=== PATIENT | female | born 1995 | race Caucasian/White ===

== ENCOUNTER 2021-04-07 20:21 | Emergency (ER) | payer OTHER, SELFPAY ==
--- NOTE | ~2021-04-07 | XR_ITS ---
EXAMINATION: XR CHEST CLINICAL INFORMATION: Right cough x8 days. COMPARISON: None TECHNIQUE: 2 views of the chest were obtained. FINDINGS: No significant abnormality is noted involving the heart, lungs, mediastinum, bony thorax or soft tissues. XR/XR chest 2V IMPRESSION: Unremarkable chest examination.
[2021-04-07 20:29] VITALS: BP 122/69; PULSE 95; RESP 18; TEMP 37.2; O2SAT 97; BMI 27.4
[2021-04-07 21:02] LABS: COVID-19 Test Negative (Negative); IDNOW Serial# 9DD0AD1C
[2021-04-07 21:24] LABS: Basophils Absolute Auto 0.1 X10*3/uL (0.0-0.2); Basophils Percent Auto 0.9 % (0-2); Hemoglobin 10.5 g/dl (12.0-16.0); SCAN SMEAR FLAG 1
[2021-04-07 21:26] LABS: Eosinophils Absolute Auto 0.6 X10*3/uL (0.0-0.4); Eosinophils Percent Auto 6.4 % (0-4); Hematocrit 31.7 % (37-47); Imm Gran Abs Auto 0.02 X10*3/uL (0.00-0.03); Imm Gran Pct Auto 0.2 % (0.0-0.4); Lymphocytes Absolute Auto 2.6 X10*3/uL (1.2-4.9); Mean Corpuscular HGB Conc 33.1 g/dl (31.0-35.0); Mean Corpuscular Hemoglobin 27.1 pg (27.0-33.0); Mean Corpuscular Volume 81.9 fL (80-98); Monocytes Absolute Auto 0.8 X10*3/uL (0.1-1.2); Monocytes Percent Auto 7.6 % (2-11); Neutrophils Absolute Auto 5.8 X10*3/uL (2.0-8.3); Neutrophils Percent Auto 58.9 % (45-73); PLT ABN DIST 1; Platelet Count 165 X10*3/uL (160-400); Red Blood Count 3.87 X10*6/uL (4.20-5.50); Red Cell Distribution Width 14.4 % (11.0-16.0); White Blood Count 9.9 X10*3/uL (4.8-10.8)
[2021-04-07 21:27] LABS: MANUAL DIFF FLAG NO
[2021-04-07 21:47] LABS: Alanine Aminotransferase 7 U/L (0-31); Albumin Level 4.2 g/dL (3.5-5.0); Alkaline Phosphatase 41 U/L (39-117); Anion Gap 13 (12-20); Aspartate Amino Transferase 14 U/L (5-31); Bilirubin Total 0.3 mg/dL (0.0-1.0); Blood Urea Nitrogen 15 mg/dL (9-16); Calcium 9.3 mg/dL (8.4-10.2); Carbon Dioxide 23 mmol/L (22-29); Chloride 109 mmol/L (96-108); Estimated Glomerular Filt Rate > 60; Glucose Random 89 mg/dL (60-115); Potassium 3.9 mmol/L (3.3-5.1); Sodium 141 mmol/L (135-145); Total Protein 7.4 g/dL (6.5-8.0)
[2021-04-07 23:35] VITALS: BP 123/73; PULSE 88; RESP 19; TEMP 36.8; O2SAT 100
--- NOTE | 2021-04-07 23:38 | ED_ITS ---
HPI - URI/Sore Throat General Chief Complaint: Upper Respiratory Symptoms Stated Complaint: Fever/Headaache/Sore throat Source: patient Mode of arrival: ambulatory Limitations: no limitations History of Present Illness HPI Narrative: 25-year-old female with no significant past medical history presents with 8 days of upper respiratory symptoms. Cough, shortness breath, nasal congestion, and headache. She states that over the counter medications have not been effective. MD elicited complaint: fever, cough, sore throat and nasal congestion Onset (ago): day(s) (Eight) Consistency: constant Severity: moderate Description of mucous: clear and watery Able to tolerate fluids by mouth: Yes Exacerbating factors: deep breaths Relieving factors: nothing Context: sick contacts Associated symptoms: headache, rhinorrhea, nasal congestion, sore throat and cough Treatments prior to arrival: acetaminophen and ibuprofen Related Data Previous Rx's Medication Instructions Recorded albuterol sulfate 2 puff INHALATION Q4-6H PRN #6.7 g 04/07/21 azithromycin See Rx Instructions .ROUTE 04/07/21 .COMPLEX #6 tab benzonatate [Tessalon Perles] 100 mg PO TID PRN #20 cap 04/07/21 Allergies Allergy/AdvReac Type Severity Reaction Status Date / Time No Known Allergies Allergy Verified 04/07/21 20:33 Review of Systems Review of Systems: Constitutional: No Fever, no Chills, positive fatigue, positive Malaise ENT/Mouth: positive sore throat, positive runny nose Eyes: No Discharge Cardiovascular: No Chest Pain, positive SOB Respiratory: Positive Cough, No Sputum, positive Wheezing, No Smoke Exposure, No Dyspnea Gastrointestinal: No Nausea, No Vomiting, No Diarrhea Genitourinary: no irregular bleeding, No Dysuria, No Urinary Frequency, No Hematuria, No Urinary Incontinence, No Urgency, No Flank Pain, Musculoskeletal: positive Myalgia Skin: No rash Neuro: Positive Headache Yes all other systems are reviewed and are negative [facility] Past Medical History Attestation statement: The following information was validated with the patient. Source: old records reviewed Medical History delivery delivered No known health problems Social History Social History Advance Directives: No Advance Directives Information Provided: Yes Patient : No Physical Exam Vital Signs: Vital Signs: Last Vital Signs Temp 98.2 F 04/07/21 23:35 Pulse 78 04/08/21 00:02 Resp 19 04/07/21 23:35 BP 123/73 04/07/21 23:35 Pulse Ox 100 04/07/21 23:35 Body Mass Index 27.4 Appearance: Alert. Oriented X3. Mild distress. Eyes: Pupils equal, round and reactive to light. EOMI, sclera nonicteric, clear conjunctiva ENT: Pharynx normal. Moist mucous membranes Neck: Normal inspection. Neck supple. CVS: Normal heart rate and rhythm. Pulses normal. Respiratory: No respiratory distress. Lung sounds coarse throughout. Abdomen: Soft and nontender. Skin: Skin warm and dry. Normal skin color. Normal skin turgor. Extremities: No lower extremity edema. Neuro: No motor deficit. No sensory deficit. Course Course Course Narrative: 25-year-old female presents with 8 days of upper respiratory symptoms. Lung sounds are coarse, will order neb treatment and albuterol pump inhaler. Will give azithromycin and Tessalon Perles. Although x-rays negative for pneumonia, I feel that is necessary to treat as she has had prolonged symptoms, and lungs are coarse with past medical history of asthma. COVID test is negative. Lab values are unremarkable. Plan of care is to discharge home. Patient verbalized understanding of and agrees to plan. nurse's companion utilized for all correspondence. Will translate utilized for discharge instructions. MDM - URI/Sore Throat Differential Diagnosis Differential diagnosis: Likely upper respiratory infection, viral infection and bronchitis Medical Records Attestation: I reviewed the patient's medical records. Lab Data Attestation: I reviewed the patient's lab results. Result diagrams: 04/07/21 21:11 04/07/21 21:11 Labs: Lab Results 04/07/21 04/07/21 04/07/21 Range/Units 20:35 21:11 21:11 WBC 9.9 (4.8-10.8) X10*3/uL RBC 3.87 L (4.20-5.50) X10*6/uL Hgb 10.5 L (12.0-16.0) g/dl Hct 31.7 L (37-47) % MCV 81.9 (80-98) fL MCH 27.1 (27.0-33.0) pg MCHC 33.1 (31.0-35.0) g/dl RDW 14.4 (11.0-16.0) % Plt Count 165 (160-400) X10*3/uL MPV Not Reportable Immature Gran % (Auto) 0.2 (0.0-0.4) % Neut % (Auto) 58.9 (45-73) % Lymph % (Auto) 26.0 (20-40) % [place] % (Auto) 7.6 (2-11) % Eos % (Auto) 6.4 H (0-4) % Baso % (Auto) 0.9 (0-2) % Lymph # (Auto) 2.6 (1.2-4.9) X10*3/uL [place] # (Auto) 0.8 (0.1-1.2) X10*3/uL Eos # (Auto) 0.6 H (0.0-0.4) X10*3/uL Baso # (Auto) 0.1 (0.0-0.2) X10*3/uL Abs Immat Gran (auto) 0.02 (0.00-0.03) X10*3/uL Absolute Neuts (auto) 5.8 (2.0-8.3) X10*3/uL Absolute Nucleated RBC 0.000 (0.0-0.012) X10*3/uL Nucleated RBC % (auto) 0.0 (0.0-0.2) /100WBC Sodium 141 (135-145) mmol/L Potassium 3.9 (3.3-5.1) mmol/L Chloride 109 H (96-108) mmol/L Carbon Dioxide 23 (22-29) mmol/L Anion Gap 13 (12-20) BUN 15 (9-16) mg/dL Creatinine 0.84 (0.5-1.4) mg/dL Estim Creat Clear Calc 100.0 Estimated GFR > 60 Random Glucose 89 (60-115) mg/dL Calcium 9.3 (8.4-10.2) mg/dL Total Bilirubin 0.3 (0.0-1.0) mg/dL AST 14 (5-31) U/L ALT 7 (0-31) U/L Alkaline Phosphatase 41 (39-117) U/L Total Protein 7.4 (6.5-8.0) g/dL Albumin 4.2 (3.5-5.0) g/dL COVID-19 (RICARDO) Negative (Negative) COVID-19 Clin Com See Note Imaging Data Chest x-ray: Attestation: I personally reviewed and interpreted this imaging study as follows: Radiologist's impression: EXAMINATION: XR CHEST CLINICAL INFORMATION: Right cough x8 days. COMPARISON: None TECHNIQUE: 2 views of the chest were obtained. FINDINGS: No significant abnormality is noted involving the heart, lungs, mediastinum, bony thorax or soft tissues. XR/XR chest 2V IMPRESSION: Unremarkable chest examination. Discharge Plan Discharge Clinical Impression: Bronchitis Upper respiratory infection Qualifiers: URI type: unspecified URI Qualified Code(s): J06.9 - Acute upper respiratory infection, unspecified Patient Disposition: Home, Self-Care Instructions: Upper Respiratory Infection (ED), Acute Bronchitis (ED) Additional Instructions: You were evaluated for upper respiratory symptoms. Please take azithromycin as directed. Please use albuterol as needed for shortness of breath and cough. Please use Tessalon 1 tab every 8 hours for cough. Do not exceed this dosage. Follow-up with primary care physician in the next week as needed. Drink plenty of fluids. Thank you for choosing this emergency department for evaluation. Please follow-up with primary care physician as needed. Return to the emergency department for any new, concerning, or worsening symptoms. Prescriptions: New azithromycin 250 mg tablet See Rx Instructions .ROUTE .COMPLEX Qty: 6 RF: 0 albuterol sulfate 90 mcg/actuation HFA aerosol inhaler 2 puff inhalation Q4-6H PRN (Reason: shortness of breath or wheezing) Qty: 6.7 RF: 0 benzonatate [Tessalon Perles] 100 mg capsule 100 mg PO TID PRN (Reason: cough) Qty: 20 RF: 0 Interventions: ED Discharge Assessment Last Done: 04/08/21 00:24 Discharge Date/Time: 04/08/21 00:30
[2021-04-07] MEDS: Azithromycin 500 MG TABLET PO (23:54)
[2021-04-07] MEDS: Benzonatate 100 MG CAPSULE 200 MG PO (23:54)
[2021-04-08 00:02] VITALS: PULSE 78; O2SAT 99
[2021-04-08] MEDS: Albuterol Sulfate 90 MCG 8 GM INHALER 2 PUFF INHALE (00:03)
[2021-04-08] MEDS: Albuterol Sulfate (0.083%) 2.5 MG/3 ML VIAL.NEB 5 MG INHALE (00:04)
== END 2021-04-08 00:30 | disposition home or self-care (01) ==
PROVIDERS: Emergency Provider Emergency Medicine Emergency Medical Services
DX: J06.9 Acute upper respiratory infection, unspecified (principal); J40 Bronchitis, not specified as acute or chronic; Z20.822 Contact with and (suspected) exposure to COVID-19
CPT/HCPCS: 36415; 71046; 80053; 85025; 87635; 94640; 99284

== ENCOUNTER 2021-08-17 10:12 | Emergency (ER) | payer MEDICAID, SELFPAY ==
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
[2021-08-17 10:18] VITALS: BP 109/61; PULSE 77; RESP 17; TEMP 35.9; O2SAT 100; BMI 29.2
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
== END 2021-08-17 11:55 | disposition home or self-care (01) ==
PROVIDERS: Emergency Provider Emergency Medicine
DX: S16.1XXA Strain of muscle, fascia and tendon at neck level, initial encounter (principal); V43.52XA Car driver injured in collision with other type car in traffic accident, initial encounter; Y93.9 Activity, unspecified; Y92.410 Unspecified street and highway as the place of occurrence of the external cause; Y99.9 Unspecified external cause status
CPT/HCPCS: 72040; 99283

== ENCOUNTER 2022-01-21 23:31 | Emergency (ER) | payer MEDICAID, SELFPAY ==
[2022-01-22 00:09] VITALS: BP 128/83; PULSE 77; RESP 15; TEMP 36.7; O2SAT 98; BMI 29.2
[2022-01-22 01:07] LABS: Influenza A PCR NEGATIVE (Negative); Influenza B PCR NEGATIVE (Negative); Resp Syncy Virus RNA Qual PCR NEGATIVE (Negative); SARS COV2 PCR INHOUSE POSITIVE (Negative)
--- NOTE | 2022-01-22 01:43 | ED.URI ---
HPI - URI/Sore Throat General Chief Complaint: Upper Respiratory Symptoms Stated Complaint: Covid symptoms Time Seen by Provider: 01/21/22 23:35 Source: patient Mode of arrival: ambulatory History of Present Illness HPI Narrative: 26-year-old female without significant past medical history presents with who has COVID 19 positive and complaints of headache, cough, nasal congestion that started today. Related Data Previous Rx's Medication Instructions Recorded albuterol sulfate 90 mcg/actuation 2 puff INHALATION Q4-6H PRN #6.7 g 04/07/21 aerosol inhaler azithromycin 250 mg tablet See Rx Instructions .ROUTE 04/07/21 .COMPLEX #6 tab benzonatate 100 mg capsule 100 mg PO TID PRN #20 cap 04/07/21 (Luisito Yu) cyclobenzaprine 10 mg tablet 10 mg PO TID PRN #10 tab 08/17/21 ibuprofen 800 mg tablet 800 mg PO Q8H PRN #15 tab 08/17/21 Allergies Allergy/AdvReac Type Severity Reaction Status Date / Time No Known Allergies Allergy Verified 08/17/21 10:17 Review of Systems Review of Systems: Pertinent positives and negatives as stated in HPI 10 point review of systems is otherwise negative. PMFSH Past Medical History Source: nursing notes reviewed Medical History delivery delivered No known health problems Social History Social History Advance Directives: No Patient : No Physical Exam Vital Signs: Vital Signs: Last Vital Signs Temp 98.0 F 01/22/22 00:09 Pulse 77 01/22/22 00:09 Resp 15 01/22/22 00:09 BP 128/83 01/22/22 00:09 Pulse Ox 98 01/22/22 00:09 BMI result Body Mass Index 29.2 VITAL SIGNS: Reviewed. GENERAL: Well developed, well nourished, in no acute distress. HEAD: Normocephalic/atraumatic EYES: PERRLA, EOMI EARS: Ext canals without abnormality, TMs non-bulging and non-erythematous NOSE: Nares patent bilateral OROPHARYNX: no oral lesions noted, posterior pharynx clear and non-erythematous without noted tonsillar enlargement/erythema/exudates NECK: Supple, no adenopathy LUNGS: Normal breath sounds. No adventitious sounds or accessory muscle use. SpO2<98> CARDIOVASCULAR: Regular rate and rhythm without noted murmurs ABDOMEN: Soft, non-tender, non-distended with bowel sounds. SKIN: Inspection of the skin reveals no rashes NEUROLOGIC: Alert and oriented x 4. Strength and sensation to light touch were grossly intact x 4. Course Course Course Narrative: 26-year-old female with history and clinical presentation consistent with viral syndrome and on review of all investigations patient has COVID-19 positive. She was informed of all results and is otherwise hemodynamically stable. Patient is oxygenating well on room air, she is neither tachypneic/tachycardic/or febrile. MDM - URI/Sore Throat Lab Data Labs: Lab Results 01/22/22 Range/Units 00:19 Influenza Type A (PCR) NEGATIVE (Negative) Influenza Type B (PCR) NEGATIVE (Negative) RSV RNA Qual (PCR) NEGATIVE (Negative) SARS-CoV-2 RNA (RT-PCR) POSITIVE A (Negative) Discharge Plan Discharge Clinical Impression: Upper respiratory infection, Lab test positive for detection of COVID-19 virus Patient Disposition: Home, Self-Care Instructions: Upper Respiratory Infection (ED), COVID-19 (Coronavirus Disease 2019) (ED) Additional Instructions: Le stephenson diagnosticado jennifer infecci?n por COVID 19 y debe permanecer en cuarentena eleni los pr?ximos 14 d?as. Siga todas las pautas estatales y federales con respecto a la infecci?n por COVID-19. Recomiende Tylenol/ibuprofen de venta haylie seg?n sea necesario para temperaturas superiores a 100.4, mansi corporales, mansi de malka. Regrese a la foster de emergencias si los s?ntomas empeoran. Prescriptions: No Action azithromycin 250 mg tablet See Rx Instructions .ROUTE .COMPLEX Qty: 6 0RF Rx Instructions: take 500 mg today (day 1), then 250 mg for 4 days (days 2-5) albuterol sulfate 90 mcg/actuation HFA aerosol inhaler 2 puff inhalation Q4-6H PRN (Reason: shortness of breath or wheezing) Qty: 6.7 0RF benzonatate [Luisito Yu] 100 mg capsule 100 mg PO TID PRN (Reason: cough) Qty: 20 0RF ibuprofen 800 mg tablet 800 mg PO Q8H PRN (Reason: pain) Qty: 15 0RF cyclobenzaprine 10 mg tablet 10 mg PO TID PRN (Reason: muscle spasm) Qty: 10 0RF Print Language: Moldovan
== END 2022-01-22 02:58 | disposition home or self-care (01) ==
PROVIDERS: Emergency Provider Student in an Organized Health Care Education/Training Program
DX: U07.1 COVID-19 (principal); J06.9 Acute upper respiratory infection, unspecified
CPT/HCPCS: 0241U; 99283

== ENCOUNTER 2022-01-31 11:27 | Emergency (ER) | payer MEDICAID, SELFPAY | END 2022-01-31 13:30 | disposition left against medical advice (07) | PROVIDERS: Emergency Provider Emergency Medicine | DX: R51.9 Headache, unspecified (principal); R05.9 Cough, unspecified ==

== ENCOUNTER 2022-04-19 18:36 | Emergency (ER) | payer MEDICAID, SELFPAY | END 2022-04-19 19:58 | disposition left against medical advice (07) | PROVIDERS: Emergency Provider Emergency Medicine | DX: Z04.3 Encounter for examination and observation following other accident (principal) ==

== ENCOUNTER 2022-07-29 02:01 | Emergency (ER) | payer MEDICAID, SELFPAY ==
--- NOTE | 2022-07-29 | ECG_ITS ---
Test Reason : CHEST TIGHTNESS Blood Pressure : / mmHG Vent. Rate : 081 BPM Atrial Rate : 081 BPM P-R Int : 128 ms QRS Dur : 084 ms QT Int : 366 ms P-R-T Axes : 058 062 051 degrees QTc Int : 425 ms Normal sinus rhythm conduction delay Otherwise normal ECG No previous ECGs available Referred By: Generic ED Physician Electronically Signed By:JOSÉ MIGUEL HOLLY MD
[2022-07-29 02:28] VITALS: BP 117/68; PULSE 94; RESP 20; TEMP 37.4; O2SAT 96; BMI 29.9
[2022-07-29 02:54] LABS: Strep A Nucleic Acid Negative (Negative)
[2022-07-29 02:58] LABS: COVID-19 Test Negative (Negative); IDNOW Serial# 16C4AD1C; Influenza A Negative (Negative); Influenza B2 Negative (Negative)
[2022-07-29 04:00] VITALS: BP 114/64; PULSE 77; RESP 16; TEMP 36.9; O2SAT 96
--- NOTE | 2022-07-29 04:06 | ED.GENADULT ---
HPI - General Adult General Chief complaint: General Medical Stated complaint: Asthma Time Seen by Provider: 07/29/22 03:58 Source: patient Mode of arrival: ambulatory Limitations: no limitations History of Present Illness HPI narrative: 26-year-old female smoker with asthma presents emergency department complaining of cough all day. She states she ran out of her albuterol yesterday she denies any fevers or chills she denies any sick contacts she denies any falls or injuries. Related Data Previous Rx's Medication Instructions Recorded albuterol sulfate 90 mcg/actuation 2 puff inhalation Q4-6H PRN 04/07/21 aerosol inhaler shortness of breath or wheezing #6.7 grams azithromycin 250 mg tablet See Rx Instructions PO .COMPLEX #6 04/07/21 tabs benzonatate 100 mg capsule 100 mg PO TID PRN cough #20 caps 04/07/21 (Luisito Yu) cyclobenzaprine 10 mg tablet 10 mg PO TID PRN muscle spasm #10 08/17/21 tabs ibuprofen 800 mg tablet 800 mg PO Q8H PRN pain #15 tabs 08/17/21 albuterol sulfate 90 mcg/actuation 2 puff inhalation Q4-6H PRN 07/29/22 aerosol inhaler shortness of breath or wheezing #8.5 grams prednisone 20 mg tablet 60 mg PO DAILY Asthma 5 days #15 07/29/22 tabs Allergies Allergy/AdvReac Type Severity Reaction Status Date / Time No Known Allergies Allergy Verified 08/17/21 10:17 Review of Systems Review of Systems: Review of systems: General: Patient denies any fever chills recent illness or falls Musculoskeletal: Denies back pain or body aches or other injuries HEENT: denies headache, runny nose, ear pain Respiratory: shortness of breath, cough Cardiovascular: no chest pain or palpitations : denies dysuria, frequency Abdomen: no nausea vomiting denies abdominal pain Extremities: no swelling, no pain Skin: no diaphoresis Yes all other systems are reviewed and are negative [facility] Past Medical History Medical History delivery delivered No known health problems Social History Social History Advance Directives: No Advance Directives Information Provided: No Physical Exam ED Vital Signs: Vital Signs - 24 hr 07/29/22 02:28 07/29/22 04:00 07/29/22 04:22 Temperature 99.3 F 98.4 F Pulse Rate 94 77 73 Respiratory Rate 20 16 20 Blood Pressure 117/68 114/64 Pulse Oximetry 96 96 Oxygen Delivery Method Room Air Room Air BMI result Body Mass Index 29.9 General: Well-appearing well-nourished in no signs of distress HEENT: Normocephalic atraumatic? Neck: No signs of JVD, no masses no tenderness or lymphadenopathy Cardiovascular: Regular rate and rhythm Respiratory: wheezing bilaterally Abdomen: Soft nontender no masses Extremities: Normal pedal pulses no signs of edema Skin: Dry warm no rashes Back: No tenderness full ROM Medical Decision Making MDM Narrative Medical decision making narrative: Patient with wheezing bilaterally though patient has some albuterol I will give the patient prednisone and the patient need to be sent home on albuterol and prednisone. 0450 Patient is feeling much better XR okay wheezing resolved on exam. I will send home on prednisone with an inhaler. Lab Data Labs: Lab Results 07/29/22 07/29/22 07/29/22 Range/Units 02:29 02:29 02:33 COVID-19 (RICARDO) Negative (Negative) COVID-19 Clin Com See Note Influenza Type A (LIZET) Negative (Negative) Influenza Type B (LIZET) Negative (Negative) Influenza A & B Note See Note S. pyogenes GrpA LIZET Negative (Negative) Discharge Plan Discharge Clinical Impression: Asthma exacerbation Patient Disposition: Home, Self-Care Instructions: Asthma (ED), How to Use a Metered-Dose Inhaler and a Spacer (ED) Additional Instructions: Please call to follow up with your doctor. Please stop smoking. Prescriptions: New albuterol sulfate 90 mcg/actuation HFA aerosol inhaler 2 puff inhalation Q4-6H PRN (Reason: shortness of breath or wheezing) Qty: 8.5 1RF prednisone 20 mg tablet 60 mg PO DAILY 5 Days Qty: 15 0RF No Action azithromycin 250 mg tablet See Rx Instructions .ROUTE .COMPLEX Qty: 6 0RF Rx Instructions: take 500 mg today (day 1), then 250 mg for 4 days (days 2-5) albuterol sulfate 90 mcg/actuation HFA aerosol inhaler 2 puff inhalation Q4-6H PRN (Reason: shortness of breath or wheezing) Qty: 6.7 0RF benzonatate [Tessalon Perles] 100 mg capsule 100 mg PO TID PRN (Reason: cough) Qty: 20 0RF ibuprofen 800 mg tablet 800 mg PO Q8H PRN (Reason: pain) Qty: 15 0RF cyclobenzaprine 10 mg tablet 10 mg PO TID PRN (Reason: muscle spasm) Qty: 10 0RF
[2022-07-29] MEDS: predniSONE 20 MG TABLET 60 MG PO (04:17)
[2022-07-29] MEDS: Albuterol Sulfate (0.083%) 2.5 MG/3 ML VIAL.NEB INHALE (04:21)
[2022-07-29 04:22] VITALS: PULSE 73; RESP 20; O2SAT 100
== END 2022-07-29 05:26 | disposition home or self-care (01) ==
PROVIDERS: Emergency Provider Student in an Organized Health Care Education/Training Program
DX: J45.901 Unspecified asthma with (acute) exacerbation (principal); Z20.822 Contact with and (suspected) exposure to COVID-19
CPT/HCPCS: 71045; 87502; 87635; 87651; 93005; 94640; 99284

== ENCOUNTER 2022-08-29 19:04 | Emergency (ER) | payer MEDICAID, SELFPAY ==
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
[2022-08-29 19:32] VITALS: BP 120/76; PULSE 101; PULSE 102; RESP 20; TEMP 36.8; O2SAT 98; O2SAT 99; BMI 26.6
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
[2022-08-29] MEDS: Acetaminophen 325 MG TABLET 975 MG PO (20:13)
[2022-08-29] MEDS: oxyCODONE HCl ER 10 MG TAB.ER.12H PO (20:13)
== END 2022-08-29 22:40 | disposition home or self-care (01) ==
PROVIDERS: Emergency Provider Emergency Medicine
DX: S52.002A Unspecified fracture of upper end of left ulna, initial encounter for closed fracture (principal); Y00.XXXA Assault by blunt object, initial encounter; R51.9 Headache, unspecified; Y93.89 Activity, other specified; Y92.039 Unspecified place in apartment as the place of occurrence of the external cause; Y99.9 Unspecified external cause status
CPT/HCPCS: 29105; 70450; 72125; 73020; 73060; 73070; 73090; 73120; 99283; 99284

== ENCOUNTER 2022-09-03 11:31 | Emergency (ER) | payer MEDICAID, SELFPAY ==
--- NOTE | ~2022-09-03 | XR_ITS ---
EXAMINATION: XR ELBOW, LEFT CLINICAL INFORMATION: Evaluate fracture. COMPARISON: August 29, 2022 TECHNIQUE: 2 views of the left elbow. FINDINGS: There is again noted be a transverse intra-articular fracture of the proximal ulnar with stable alignment compared to previous study and no evidence of dislocation. There is a left elbow effusion present. XR/XR elbow LT min 3V IMPRESSION: No change in alignment of proximal intra-articular ulnar fracture with effusion..
[2022-09-03 11:33] VITALS: RESP 16; TEMP 36.2; O2SAT 99; BMI 26.6
[2022-09-03] MEDS: oxyCODONE HCl Immed Release 5 MG TABLET PO (13:30)
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
== END 2022-09-03 16:12 | disposition home or self-care (01) ==
PROVIDERS: Emergency Provider Emergency Medicine
DX: S52.002A Unspecified fracture of upper end of left ulna, initial encounter for closed fracture (principal); M79.602 Pain in left arm; Y04.2XXA Assault by strike against or bumped into by another person, initial encounter; Y93.9 Activity, unspecified; Y92.9 Unspecified place or not applicable; Y99.9 Unspecified external cause status; Z79.899 Other long term (current) drug therapy
CPT/HCPCS: 29105; 73080; 99283

== ENCOUNTER → 2022-09-04 10:38 | Outpatient (BNVA) | payer MEDICAID, SELFPAY | PROVIDERS: Visit Provider Physician Assistant | DX: S52.002A Unspecified fracture of upper end of left ulna, initial encounter for closed fracture (principal) | CPT/HCPCS: 29105; 99202 ==

== ENCOUNTER 2022-09-06 11:04 | Day surgery (SDC) | payer MEDICAID, SELFPAY ==
--- NOTE | 2022-09-05 11:02 | HO.ANESPROP2 ---
Documented by User: Tatiana Doyle NP 09/05/22 11:04 HPI - Anesthesia Eval Consult details Narrative: 26yo F for Left Ulna Fracture ORIF REPLACED BY [facility] Past Medical History Medical History (Updated 09/06/22 @ 12:35 by Ashlyn Ortega, RAYSHAWN) Asthma delivery delivered Social History Social History (Updated 09/04/22 @ 10:50 by Silver Scott) Patient Tobacco Use Status: Current everyday Tobacco user Tobacco use type: Cigarette Cigarettes Per Day: 3 Years Smoked: 2 years Current occupational status: unemployed Current occupation: right hand dominant Meds Allergies Allergy/AdvReac Type Severity Reaction Status Date / Time No Known Allergies Allergy Verified 09/06/22 12:35 Home Medications Medication Instructions Recorded Confirmed Last Taken Type prednisone 20 mg tablet 60 mg PO DAILY PRN asthma 09/06/22 Unknown History exacerbation Exam Exam Date and Time: September 05, 2022 110 Narrative Narrative: EKG 07/2022 Vent. Rate : 081 BPM ? ? Atrial Rate : 081 BPM ?? P-R Int : 128 ms? QRS Dur : 084 ms ? ? QT Int : 366 ms ? ? ? P-R-T Axes : 058 062 051 degrees ?? QTc Int : 425 ms ? Normal sinus rhythm RSR' or QR pattern in V1 suggests right ventricular conduction delay Otherwise normal ECG No previous ECGs available Assessment and Plan Assessment Anesthesia Assessment: Chart Reviewed Documented by User: Danial Fisher MD 09/06/22 18:39 REPLACED BY [facility] Past Medical History Medical History (Updated 09/06/22 @ 12:35 by Ashlyn Ortega RN) Asthma delivery delivered Functional capacity: independent ambulation Family History Family history of problems with anesthesia: No Surgical History History of Problems with Anesthesia: No Social History Social History (Updated 09/04/22 @ 10:50 by Silver Scott) Patient Tobacco Use Status: Current everyday Tobacco user Tobacco use type: Cigarette Cigarettes Per Day: 3 Years Smoked: 2 years Current occupational status: unemployed Current occupation: right hand dominant Meds Allergies Allergy/AdvReac Type Severity Reaction Status Date / Time No Known Allergies Allergy Verified 09/06/22 12:35 Home Medications Medication Instructions Recorded Confirmed Last Taken Type prednisone 20 mg tablet 60 mg PO DAILY PRN asthma 09/06/22 Unknown History exacerbation Exam Airway Mallampati Class: II TM Dist: >3cm Neck ROM: Full Loose/Missing/Broken Teeth: Yes (Front teeth multiple chipped , poor dentition overall ) Heart: S1,S2 Lungs: b/l breath sounds Assessment and Plan Assessment Anesthesia Assessment: Anesthesia Plan Discussed Final Anesthetic Review Family History of Problems with Anesthesia: No History of Problems with Anesthesia: No NPO: Yes ASA Class: II Final Preanesthetic Review: Meds/Allgs Chart Reviewed, Consent Obtained/Reviewed and Anes Risks/Benef Reviewed Patient Risk: Intermediate Procedure Risk: Intermediate Anesthetic Plan Anesthetic Plan: GA Disposition: Standard PACU
[2022-09-06] VITALS (9 sets, daily range): BP systolic 95–138; BP diastolic 60–90; PULSE 61–74; RESP 15–16; TEMP 36.3–36.6; O2SAT 97–100; BMI 29.7
--- NOTE | ~2022-09-06 | FL_ITS ---
EXAMINATION: XR FLUOROSCOPY WITH IMAGES CLINICAL INFORMATION: Fracture intraoperative fluoroscopy and C-arm views. COMPARISON: Prior study 09/03/2022 TECHNIQUE: Fluoroscopy Time: 0.4 minutes. Cumulative Dose: 0.929 mGy. Images: 2. FINDINGS: Intraoperative fluoroscopy provided, nails/wires placed across the fractures of the proximal ulna. Anatomic alignments restored. FL/FL guidance in OR IMPRESSION: Intraoperative fluoroscopy and C-arm views for ORIF proximal ulnar fractures.
[2022-09-06 12:00] LABS: UPreg QC Valid YES; Urine Pregnancy NEGATIVE (NEGATIVE)
--- NOTE | 2022-09-06 13:38 | MHC.SHP ---
Pre-Procedural Eval Section A Date of Service: 09/06/22 The patient is an INPATIENT: No Changes since office visit: No Cold of Flu in the past 2 weeks, No New Medical Problems, No Changes in Medication and No Patient answered all questions The History & Physical has been completed within 30 days and I have reviewed it.: Yes Section B Chief Complaint: Unspecified fracture of upper end of left ulna, Allergies: Allergies Allergy/AdvReac Type Severity Reaction Status Date / Time No Known Allergies Allergy Verified 09/06/22 12:35 Plan I have reviewed the history and physical and performed a pertinent physical examination on my patient. No changes have occurred unless specified.
--- NOTE | 2022-09-06 14:41 | PM.OP ---
Brief Operative Note Date of Service: 09/06/22 Pre-op diagnosis: Left olecranon fracture Post-op diagnosis: same Procedure: ORIF left Olecranon Implants: 1.6 k-wires x 2 with 14g cerclage Surgeon: Fabrizio Enriquez MD Anesthesia: GETA and local Was an Cashier Ticket Selling used for this Procedure?: Yes Cashier Ticket Selling: Jolanta Munoz Estimated blood loss (mL): 45 Tourniquet time (min): 45 IV fluids (mL): 1,000 Pathology: none sent Condition: stable Disposition: PACU
[2022-09-06] MEDS: HYDROmorphone HCl 0.5 MG/0.5 ML SYRINGE 0.25 MG IVPUSH (15:58)
[2022-09-06] MEDS: Acetaminophen 325 MG TABLET 650 MG PO (16:53)
[2022-09-06] MEDS: oxyCODONE HCl Immed Release 5 MG TABLET PO (16:54)
--- NOTE | 2022-09-06 17:03 | PC.NURSE ---
patient tearful complaining of left arm pain. taking po fluids. medicated for pain. review instructions discharge. following pain medication patient talking on cellphone more calm.
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
--- NOTE | 2022-09-12 11:16 | P.OP_ITS ---
Operative Note Operative Note Date of Service: 09/06/22 Narrative: Date of Service: 09/06/22 Pre-op diagnosis: Left olecranon fracture Post-op diagnosis: same Procedure: ORIF left Olecranon Implants: 1.6 k-wires x 2 with 14g cerclage Surgeon: Fabrizio Enriquez MD Anesthesia: GETA and local Was an Legal Activity Adjudicator used for this Procedure?: Yes Legal Activity Adjudicator: Jolanta Munoz Estimated blood loss (mL): 45 Tourniquet time (min): 45 IV fluids (mL): 1,000 Pathology: none sent Condition: stable Disposition: PACU Patient was brought to the operating room and placed supine on the surgical table. She was prepped and draped in standard sterile fashion and a time out was called to identify proper site, proper procedure and IV antibiotics per weight were administered. I began by exsanguinating the limb and insufflating the tourniquet to 250 mm HG. I then made a standard posterior incision over the ol ecranon. Full thickness flaps were devloped down to the ulna and the fracture was identified. 2 1.6 mm K-wires were then passed from ;proximal to distal, bicortically across the fracture. A 14 g cerclage wire was then placed through the ulna, distal to the fracture, and then brought proximal to the olecranon wires, crossed and then tightened. The fracture was reduced and I was satisfied with the hardware position and fracture reduction using fluor and direct visualization. I then buried the wire ends and the knot and irrigated copiously. The wound was then closdd with absorbable suture and skin glue. She was placed into a postrior, well-padded, splint, extubated and brought to the recovery room in stable condition. There were no known complications.
== END 2022-09-06 17:29 | disposition home or self-care (01) ==
LOC: HO.SSS 11:04
PROVIDERS: Nurse Practitioner; Visit Provider Orthopaedic Surgery
PROC: (CPT 24685; principal; 2022-09-06 12:30)
DX: S52.032A Displaced fracture of olecranon process with intraarticular extension of left ulna, initial encounter for closed fracture (principal); R20.2 Paresthesia of skin; W22.8XXA Striking against or struck by other objects, initial encounter; Y93.89 Activity, other specified; Y92.9 Unspecified place or not applicable; Y99.8 Other external cause status; J45.909 Unspecified asthma, uncomplicated; Z79.52 Long term (current) use of systemic steroids; Z79.899 Other long term (current) drug therapy; F17.210 Nicotine dependence, cigarettes, uncomplicated
CPT/HCPCS: 24685; 81025; J0690; J1100; J1170; J2250; J2405; J2795; J3010

== ENCOUNTER 2022-09-11 | Outpatient (REF) | payer MEDICAID, SELFPAY ==
--- NOTE | ~2022-09-11 | XR_ITS ---
EXAMINATION: XR ELBOW, LEFT CLINICAL INFORMATION: Fracture COMPARISON: Previous x-ray 09/03/2022 and intraoperative fluoroscopy the images 09/06/2022 TECHNIQUE: AP, lateral, and oblique views of the left elbow. FINDINGS: ORIF of proximal ulnar fracture. This appears unchanged from fluoroscopy images 09/06/2022. Anatomic alignment. No other fracture. Soft tissue swelling. Small joint effusion. XR/XR elbow LT min 3V IMPRESSION: ORIF of proximal ulnar fracture.
== END 2022-09-11 00:01 ==
LOC: HO.HOSX
PROVIDERS: Visit Provider Physician Assistant
DX: M25.522 Pain in left elbow (principal)
CPT/HCPCS: 73080

== ENCOUNTER 2022-09-18 | Outpatient (REF) | payer MEDICAID, SELFPAY ==
--- NOTE | ~2022-09-18 | XR_ITS ---
EXAMINATION: XR ELBOW, LEFT CLINICAL INFORMATION: Pain. Prior reduction proximal intra-articular ulnar fracture. Follow-up. COMPARISON: Left elbow radiographs 08/22/2022, 09/03/2022. TECHNIQUE: AP, lateral, and oblique views of the left elbow. FINDINGS: There is been prior reduction internal fixation of the intra-articular proximal ulnar fracture. The wires are intact. No destructive process or osteolysis. There are overlying skin joanne again seen. Fracture fragments are in near-anatomic alignment. The fracture line is still faintly visible. No visible elbow capsular effusion. No acute bony abnormality. XR/XR elbow LT min 3V IMPRESSION: Status post reduction internal fixation proximal ulnar fracture. Hardware intact. No destructive process.
== END 2022-09-18 00:01 ==
LOC: HO.HOSX
PROVIDERS: Visit Provider Physician Assistant
DX: M25.522 Pain in left elbow (principal)
CPT/HCPCS: 73080

== ENCOUNTER → 2022-10-17 14:42 | Outpatient (BNVA) | payer MEDICAID, SELFPAY | PROVIDERS: PCP Nurse Practitioner Primary Care; Visit Provider Physician Assistant | DX: Z13.89 Encounter for screening for other disorder (principal) ==

== ENCOUNTER → 2022-11-28 12:52 | Outpatient (BNVA) | payer MEDICAID, SELFPAY | PROVIDERS: PCP Nurse Practitioner Primary Care; Visit Provider Physician Assistant | DX: S52.002D Unspecified fracture of upper end of left ulna, subsequent encounter for closed fracture with routine healing (principal) | CPT/HCPCS: 99212 ==

== ENCOUNTER 2023-01-08 10:31 | Outpatient (REF) | payer MEDICAID, SELFPAY | END 2023-01-08 10:32 | disposition home or self-care (01) | LOC: HO.HOSX 10:31 | PROVIDERS: Visit Provider Orthopaedic Surgery | DX: Z13.89 Encounter for screening for other disorder (principal) ==

== ENCOUNTER 2023-01-19 | Outpatient (REF) | payer MEDICAID, SELFPAY ==
--- NOTE | ~2023-01-19 | XR_ITS ---
EXAMINATION: XR ELBOW, LEFT CLINICAL INFORMATION: Pain COMPARISON: 09/18/2022 TECHNIQUE: AP, lateral, and oblique views of the left elbow. FINDINGS: Alignment is normal at radiocapitellar and ulnohumeral joints. No arthritic deformity. No acute fracture, subluxation or joint effusion. There has been healing of the previously observed olecranon fracture. The K wires and [id number] tension band wire remain intact. No hardware loosening. XR/XR elbow LT 2V IMPRESSION: * There has been healing of the olecranon fracture. * No new abnormalities at the left elbow.
== END 2023-01-19 00:01 | disposition home or self-care (01) ==
LOC: HO.HOSX
PROVIDERS: Visit Provider Orthopaedic Surgery
DX: M25.522 Pain in left elbow (principal)
CPT/HCPCS: 73070

== ENCOUNTER → 2023-01-19 11:34 | Outpatient (BNVA) | payer MEDICAID, SELFPAY | PROVIDERS: PCP Nurse Practitioner Primary Care; Visit Provider Orthopaedic Surgery | DX: S52.002D Unspecified fracture of upper end of left ulna, subsequent encounter for closed fracture with routine healing (principal); Z96.9 Presence of functional implant, unspecified | CPT/HCPCS: 99212 ==

== ENCOUNTER 2023-01-23 11:20 | Day surgery (SDC) | payer MEDICAID, SELFPAY ==
[2023-01-23] VITALS (7 sets, daily range): BP systolic 113–127; BP diastolic 68–76; PULSE 58–80; RESP 12–16; TEMP 36.4–36.8; O2SAT 96–100; BMI 26.6
--- NOTE | ~2023-01-23 | FL_ITS ---
EXAMINATION: XR FLUOROSCOPY WITH IMAGES CLINICAL INFORMATION: Hardware removal from left elbow. COMPARISON: Radiographs of elbow from 01/19/2023 TECHNIQUE: Fluoroscopy Supervised By: Dr. Enriquez. Fluoroscopy Time: 0.1 minute. Cumulative Dose: 1229 mGy. DAP: 0.0074 Gycm2. Images: 1 image is saved. FL/FL guidance in OR FINDINGS AND IMPRESSION: Interval removal of K wires and [id number] tension band wire from the olecranon. Several punctate metallic densities project over soft tissues at the olecranon. Alignment of the elbow is normal (as seen on this single lateral view).
[2023-01-23 12:01] LABS: UPreg QC Valid YES; Urine Pregnancy NEGATIVE (NEGATIVE)
[2023-01-23] MEDS: Lactated Ringers 1,000 ML 50 ML IVCONT (12:13)
--- NOTE | 2023-01-23 13:14 | HO.ANESPROP2 ---
HPI - Anesthesia Eval Consult details Narrative: 27 F for hardware removal PMFSH Active Problems Active Problems: All Active Problems (Updated 01/19/23 @ 12:02 by Jett Jack) S/P ORIF (open reduction internal fixation) fracture (Acute) Retained orthopedic hardware (Acute) Past Medical History Medical History Asthma delivery delivered Family History Family history of problems with anesthesia: No Surgical History Surgical History Hx of elbow surgery History of Problems with Anesthesia: No Social History Social History Patient Tobacco Use Status: Never used Tobacco Tobacco use type: Cigarette Cigarettes Per Day: 3 Years Smoked: 2 years Are you DNR?: No Advance Directives: No Advance Directives Information Provided: Yes Recently lost weight without trying: No Nutrition Risks: No Nutritional Risk FDLMP: 2 weeks last menses Current occupational status: unemployed Current occupation: right hand dominant Meds Allergies Allergy/AdvReac Type Severity Reaction Status Date / Time No Known Allergies Allergy Verified 11/28/22 13:00 Active Medications: Current Medications Lactated Ringer's (Lr) 1,000 mls @ 50 mls/hr IVCONT .Q20H JACQUELINE Last Admin: 01/23/23 12:13 Dose: 50 mls/hr Home Medications Medication Instructions Recorded Confirmed Last Taken Type ibuprofen 800 mg tablet 800 mg PO Q6H 11/28/22 01/17/23 History Exam Exam Date and Time: January 23, 2023 1315 Height,Weight and Vital Signs: Height 5 ft 7 in Weight 169 lb 15.975 oz Last Vital Signs Temp 98.3 F 01/23/23 11:40 Pulse 80 01/23/23 11:40 Resp 16 01/23/23 11:40 BP 125/69 01/23/23 11:40 Pulse Ox 98 01/23/23 11:40 O2 Del Method Room Air 01/23/23 11:40 Pertinent Lab Results Pertinent Lab Results: Laboratory Tests 01/23/23 11:40 Urine Test NEGATIVE Airway Mallampati Class: I TM Dist: >3cm Neck ROM: Full Loose/Missing/Broken Teeth: Yes Assessment and Plan Assessment Anesthesia Assessment: Anesthesia Plan Discussed and Chart Reviewed Final Anesthetic Review Family History of Problems with Anesthesia: No History of Problems with Anesthesia: No NPO: Yes ASA Class: I Final Preanesthetic Review: No Changes in Pt Med Stat, Meds/Allgs Chart Reviewed, Consent Obtained/Reviewed and Anes Risks/Benef Reviewed Patient Risk: Low Procedure Risk: Low Anesthetic Plan Anesthetic Plan: GA Disposition: Standard PACU
--- NOTE | 2023-01-23 15:27 | PM.OP ---
Brief Operative Note Date of Service: 01/23/23 Pre-op diagnosis: left elbow retained hardware Post-op diagnosis: same Procedure: KINGSLEY left elbow Implants: none Surgeon: Fabrizio Enriquez MD Anesthesia: GLMA and local Was an Finish Production Manager used for this Procedure?: No Estimated blood loss (mL): 2 Tourniquet time (min): 15 IV fluids (mL): 500 Pathology: none sent Condition: stable Disposition: PACU
[2023-01-23] MEDS: oxyCODONE HCl Immed Release 5 MG TABLET PO (16:10)
[2023-01-23] MEDS: Acetaminophen 1,000 MG/100 ML PIGGYBACK 400 MG IV (16:19)
--- NOTE | 2023-01-24 14:52 | P.OP_ITS ---
Operative Note Operative Note Date of Service: 01/24/23 Narrative: Date of Service: 01/23/23 Pre-op diagnosis: left elbow retained hardware Post-op diagnosis: same Procedure: KINGSLEY left elbow Implants: none Surgeon: Fabrizio Enriquez MD Anesthesia: GLMA and local Was an Thermal Cutting Tracer Machine Operator used for this Procedure?: No Estimated blood loss (mL): 2 Tourniquet time (min): 15 IV fluids (mL): 500 Pathology: none sent Condition: stable Disposition: PACU Patient was brought to the operating room and placed supine on the surgical table. She was prepped and draped in standard sterile fashion and a time out was called to identify proper site, proper procedure and IV antibiotics per weight were administered. The limb was exsanguinated and the tourniquet insufflated to 300 mm Hg. I began by making a 3-4 cm incision over the proximal aspect of the prior incision. Full thickness flaps were developed and the cerclage wire and pin were easily identified and then cut and then removed. Fluoro was used to confirm hardware removal. Local anesthetic was used both prior and after incision closure. Approximately 10 ml of marcaine was used. Layered closure with 3.0 vicryl and joanne was used.
== END 2023-01-23 16:41 | disposition home or self-care (01) ==
PROVIDERS: Anesthesiology; Visit Provider Orthopaedic Surgery
PROC: (CPT 20670; principal; 2023-01-23 13:00)
DX: T84.84XA Pain due to internal orthopedic prosthetic devices, implants and grafts, initial encounter (principal); M25.522 Pain in left elbow; Y79.2 Prosthetic and other implants, materials and accessory orthopedic devices associated with adverse incidents; J45.909 Unspecified asthma, uncomplicated; F17.210 Nicotine dependence, cigarettes, uncomplicated
CPT/HCPCS: 20670; 81025; J0131; J0690; J1100; J1885; J2250; J2405; J2795; J3010

== ENCOUNTER → 2023-01-25 10:38 | Outpatient (BNVA) | payer MEDICAID, SELFPAY | PROVIDERS: Visit Provider Physician Assistant ==

== ENCOUNTER 2023-01-29 08:38 | Outpatient (REF) | payer MEDICAID, SELFPAY ==
--- NOTE | ~2023-01-29 | XR_ITS ---
EXAMINATION: XR ELBOW, LEFT CLINICAL INFORMATION: Fracture. Post hardware removal. COMPARISON: Previous x-rays most recent December 2022 and fluoroscopy January 2023 TECHNIQUE: AP, lateral, and oblique views of the left elbow. FINDINGS: Healed proximal ulnar fracture. Lucencies in the proximal ulna related to previous orthopedic hardware. No acute fracture or dislocation. Normal joint space. No joint effusion. Small soft tissue tissue radiopaque foreign bodies over the olecranon. Posterior skin joanne. XR/XR elbow LT min 3V IMPRESSION: Healed proximal ulnar fracture. Small radiopaque soft tissue foreign bodies over the olecranon.
== END 2023-01-29 08:39 | disposition home or self-care (01) ==
LOC: HO.HOSX 08:38
PROVIDERS: Visit Provider Physician Assistant
DX: S52.002D Unspecified fracture of upper end of left ulna, subsequent encounter for closed fracture with routine healing (principal)
CPT/HCPCS: 73080

== ENCOUNTER → 2023-02-15 09:20 | Outpatient (BNVA) | payer MEDICAID, SELFPAY | PROVIDERS: Visit Provider Physician Assistant | DX: M25.522 Pain in left elbow (principal); S52.002A Unspecified fracture of upper end of left ulna, initial encounter for closed fracture; X58.XXXA Exposure to other specified factors, initial encounter; Y93.9 Activity, unspecified; Y92.9 Unspecified place or not applicable; Y99.8 Other external cause status; Z45.89 Encounter for adjustment and management of other implanted devices; Z98.890 Other specified postprocedural states; Z96.622 Presence of left artificial elbow joint; Z87.81 Personal history of (healed) traumatic fracture | CPT/HCPCS: 99212 ==

== ENCOUNTER 2024-05-11 01:30 | Emergency (ER) | payer MEDICAID, SELFPAY ==
--- NOTE | ~2024-05-11 | XR_ITS ---
EXAMINATION: XR CHEST CLINICAL INFORMATION: Chest pain. COMPARISON: 07/29/2022 TECHNIQUE: 2 views of the chest were obtained. FINDINGS: No significant abnormality is noted involving the heart, lungs, mediastinum, bony thorax or soft tissues. XR/XR chest 2V IMPRESSION: Unremarkable examination.
--- NOTE | 2024-05-11 01:31 | ECG_ITS ---
Test Reason : cp Blood Pressure : / mmHG Vent. Rate : 070 BPM Atrial Rate : 070 BPM P-R Int : 130 ms QRS Dur : 096 ms QT Int : 378 ms P-R-T Axes : 077 074 058 degrees QTc Int : 408 ms Normal sinus rhythm Nonspecific T wave abnormality Abnormal ECG When compared with ECG of 29-JUL-2022 02:36, No significant change was found Referred By: Generic ED Physician Electronically Signed By:DAVEY JOHNSON MD
[2024-05-11 01:41] VITALS: BP 108/78; PULSE 88; RESP 16; TEMP 36.9; O2SAT 98; BMI 20.6
[2024-05-11 02:01] VITALS: BP 120/58; PULSE 67; PULSE 70; RESP 13; TEMP 36.8; O2SAT 98
[2024-05-11 02:02] LABS: Basophils Absolute Auto 0.1 X10*3/uL (0.0-0.2); Basophils Percent Auto 1.1 % (0-2); Eosinophils Absolute Auto 0.5 X10*3/uL (0.0-0.4); Eosinophils Percent Auto 4.5 % (0-4); Hematocrit 36.2 % (37.0-47.0); Hemoglobin 12.5 g/dl (12.0-16.0); Imm Gran Abs Auto 0.04 X10*3/uL (0.00-0.03); Imm Gran Pct Auto 0.4 % (0.0-0.4); Lymphocytes Absolute Auto 2.8 X10*3/uL (1.2-4.9); Lymphocytes Percent Auto 24.5 % (20-40); MANUAL DIFF FLAG SCAN; Mean Corpuscular HGB Conc 34.5 g/dl (31.0-35.0); Mean Corpuscular Volume 86.8 fL (80.0-98.0); Mean Platelet Volume 13.2 fL (9.4-12.3); Monocytes Absolute Auto 0.7 X10*3/uL (0.1-1.2); Monocytes Percent Auto 6.1 % (2-11); Neutrophils Absolute Auto 7.2 x10*3/uL (2.0-8.3); Neutrophils Percent Auto 63.4 % (45-73); PLT CLUMP 1; Red Blood Count 4.17 X10*6/uL (4.20-5.50); Red Cell Distribution Width 12.3 % (11.0-16.0); SCAN SMEAR FLAG 1
[2024-05-11 02:05] LABS: Platelet Count 145 X10*3/uL (160-400); White Blood Count 11.4 X10*3/uL (4.8-10.8)
[2024-05-11 02:20] LABS: SLIDE REVIEW VERIFIED
[2024-05-11 02:25] LABS: Alanine Aminotransferase 13 U/L (0-31); Albumin Level 4.4 g/dL (3.5-5.0); Alkaline Phosphatase 37 U/L (39-117); Anion Gap 12 (12-20); Aspartate Amino Transferase 16 U/L (5-31); Bilirubin Total 0.2 mg/dL (0.0-1.0); Blood Urea Nitrogen 16 mg/dL (9-16); Calcium 9.5 mg/dL (8.4-10.2); Carbon Dioxide 24 mmol/L (22-29); Chloride 107 mmol/L (96-108); Creatinine Clr Calc Pharmacy 84.7; Estimated Glomerular Filt Rate > 60; Glucose Random 89 mg/dL (60-115); Potassium 3.5 mmol/L (3.3-5.1); Sodium 139 mmol/L (135-145); Total Protein 7.4 g/dL (6.5-8.0)
[2024-05-11 02:31] LABS: Troponin-I High Sensitivity < 2.7 ng/L (<3.5-17.0)
--- OUTSIDE RECORDS SUMMARY | 2024-05-11 02:31 | XMS_ITS | Continuity of Care Document ---
Author Organization [facility] Address [address] [place] [address]- Care Team Providers Care Heat Treat Inspector Name Role Phone Marito SHRESTHA, Kings Morrissey Primary Care Physicia n Encounter [facility] [id number] Date(s): 06/19/23 - 07/19/23 [facility] [address]- Attending Physician: Marcie Dumas Admitting Physician: Marcie Dumas Referring Physician: AdmMarcie carranza Allergies, Adverse Reactions, Alerts No Known Allergies Immunizations Given and Recorded Vaccine Date Status Refusal Reason tetanus/diphtheria/pertussis, acel(Tdap) 04/08/18 Given tetanus/diphtheria/pertussis, acel(Tdap) 12/12/16 Given tetanus/diphtheria/pertussis, acel(Tdap) 09/15/15 Given tetanus/diphtheria/pertussis, acel(Tdap) 1 04/09/14 Given influenza virus vaccine, inactivated 08/12/15 Give n 1Result Comment: VIS given 02/27/2014 Medications Handheld Electric Breast Pump See Instructions, # 1 units, Maintenance, See instructions, 06/20/18 4:33:56 EDT, Compound Start Date: 06/20/18 Status: Ordered Problem List Condition Confirmation Course Effective Dates Status H ealth Status Informant Bartholin cyst Confirmed Active history of Diabetes, gestational Confirmed Active History of pre-eclampsia Confirmed Active British speaking patient Confirmed Active Thrombocytopenia Confirmed Active Uterine scar from previous surgery affecting Confirmed Active Maternal varicella, non-immune Confirmed Active Social History Social History Type Response Smoking Status Never smoker entered on: 06/21/14 Sex Patient Care team information Care Team Personnel Name: Natalie Kolb RN Position: [facility] OB RN Member Role: Primary Care Nurse Name: Kings Devi MD Position: [facility] General Pediatrics MD Member Role: PCP Address: Address: [facility] M.D. Pediatric[facility] [place], [place] [address] Name: Myriam Amos NP Position: [facility] Associate Professional Member Role: Primary Care Nurse Care Team Related Persons Name: GABI WAHL Address: home [address] [place] [address] Name: AMOS HUMPHREY Address: [address] Address: home [address] [address] [place] Name: GHASSAN FRIEDMAN Address: home [address] [place] [address]
--- NOTE | 2024-05-11 02:46 | ED_ITS ---
HPI - Chest Pain General Chief Complaint: Chest Pain Stated Complaint: chest pain Time Seen by Provider: 05/11/24 01:58 Source: patient Mode of arrival: ambulatory Limitations: no limitations History of Present Illness ED Provider: TRESA SMYTH narrative: 28 yo female no OCPs no recent URI no travel or procedures no trauma reports L chest and breast pain since yesterday worse with movements and touching. No rash or lesion to the breast this has never happened before. No hx of CAD MD complaint: chest pain Onset (ago): day(s) (yesterday) Timing of current episode: constant Prior episodes: No Onset: during rest Pain location: left chest Pain radiation: none Severity: moderate Quality: aching Relieving factors: nothing Exacerbating factors: palpation and movement Associated symptoms: dyspnea and other (breast pain) Related Data Home Medications ?Medication ?Instructions ?Recorded ?Confirmed ibuprofen 800 mg tablet 800 mg PO Q6H 11/28/22 Previous Rx's ?Medication ?Instructions ?Recorded albuterol sulfate 90 mcg/actuation 2 puff inhalation Q4-6H PRN 07/29/22 aerosol inhaler shortness of breath or wheezing #8.5 grams oxycodone 5 mg tablet 5 mg PO Q4H PRN pain 7 days #42 01/23/23 tabs cyclobenzaprine 10 mg tablet 10 mg PO TID PRN muscle spasm #20 05/11/24 tabs Allergies Allergy/AdvReac Type Severity Reaction Status Date / Time No Known Allergies Allergy Verified 05/11/24 01:44 Review of Systems 2 Review of Systems: Constitutional : No Weight loss, No Fever, No Chills ENT/Mouth : No sore throat, No Rhinorrhea Eyes: No Eye Pain, No Swelling Cardiovascular : pos Chest Pain, pos SOB, no Dyspnea on Exertion, No Orthopnea, No Edema, No Palpitations Respiratory : No Cough, No Sputum Gastrointestinal : no Nausea, No Vomiting, No Diarrhea, No abdominal Pain, No Hematochezia, No Melena Genitourinary : No Dysuria, No Urinary Frequency Musculoskeletal : No joint pain, No Myalgias, No Joint Swelling Skin : No Skin Lesions, No rash Neuro : No Weakness, No Numbness, No Dizziness, No Headache All other systems reviewed and are negative PMFSH Past Medical History Attestation statement: The following information was validated with the patient. Source: old records reviewed Medical History Asthma delivery delivered Surgical History Hx of elbow surgery Social History Social History Patient Tobacco Use Status: Never used Tobacco Tobacco use type: Cigarette Cigarettes Per Day: 3 Years Smoked: 2 years Smoked in Last 30 Days: Yes Advance Directives: No Advance Directives Information Provided: No Do you have a plan to hurt others: No Plan Patient : No Current occupational status: unemployed Current occupation: right hand dominant Physical Exam 2 Vital Signs: Vital Signs: Last Vital Signs Temp 98.3 F 05/11/24 02:01 Pulse 67 05/11/24 02:01 Resp 13 05/11/24 02:01 BP 120/58 L 05/11/24 02:01 Pulse Ox 98 05/11/24 02:01 O2 Del Method Room Air 05/11/24 02:01 BMI result Body Mass Index 20.6 Appearance: Alert. Oriented X3. No acute distress. Eyes: Pupils equal, round and reactive to light. ENT: Pharynx normal. Neck: Normal inspection. Neck supple. CVS: Normal heart rate and rhythm. Pulses normal. Chest: RN in room - Rosanne no obvious infection or mass of L breat but reproduceable pain and chest wall pain Respiratory: No respiratory distress. Breath sounds normal. Abdomen: Soft and nontender. Skin: Skin warm and dry. Normal skin color. Normal skin turgor. Extremities: No lower extremity edema. No calf ttp Neuro: Oriented X 3. No motor deficit. No sensory deficit. Medical Decision Making Medical Decision Making [facility] Narrative: 28 yo female no sig PMH not on OCPs here with L breast pain, chest pain - no travel no procedures, PERC negative, normal distal pulses, no infectious symptoms no mass or infection seen on breast will obtain labs, CXR, EKG, trop x 1, discussed mammogram or US with PCP. Differential Diagnosis Differential Diagnoses: The differential diagnosis associated with the presentation includes atypical chest pain, breat pain - no infection noted PERC negative distal pulse intact doubt dissection Admission/Observation Consideration of admission/observation: Escalation of care including admission/observation considered work up negative stable for DC Lab Data [facility] Lab Attestation statement: I reviewed the patient's lab results. 05/11/24 01:55 05/11/24 01:55 Labs: Lab Results 05/11/24 Range/Units 01:55 WBC 11.4 H (4.8-10.8) X10*3/uL RBC 4.17 L (4.20-5.50) X10*6/uL Hgb 12.5 (12.0-16.0) g/dl Hct 36.2 L (37.0-47.0) % MCV 86.8 (80.0-98.0) fL MCH 30.0 (27.0-33.0) pg MCHC 34.5 (31.0-35.0) g/dl RDW 12.3 (11.0-16.0) % Plt Count 145 L (160-400) X10*3/uL MPV 13.2 H (9.4-12.3) fL Immature Gran % (Auto) 0.4 (0.0-0.4) % Neut % (Auto) 63.4 (45-73) % Lymph % (Auto) 24.5 (20-40) % Clare % (Auto) 6.1 (2-11) % Eos % (Auto) 4.5 H (0-4) % Baso % (Auto) 1.1 (0-2) % Lymph # (Auto) 2.8 (1.2-4.9) X10*3/uL Clare # (Auto) 0.7 (0.1-1.2) X10*3/uL Eos # (Auto) 0.5 H (0.0-0.4) X10*3/uL Baso # (Auto) 0.1 (0.0-0.2) X10*3/uL Abs Immat Gran (auto) 0.04 H (0.00-0.03) X10*3/uL Absolute Neuts (auto) 7.2 (2.0-8.3) x10*3/uL Absolute Nucleated RBC 0.000 (0.0-0.012) X10*3/uL Nucleated RBC % (auto) 0.0 (0.0-0.2) /100WBC Smear Tech's Comments VERIFIED Sodium 139 (135-145) mmol/L Potassium 3.5 (3.3-5.1) mmol/L Chloride 107 (96-108) mmol/L Carbon Dioxide 24 (22-29) mmol/L Anion Gap 12 (12-20) BUN 16 (9-16) mg/dL Creatinine 0.85 (0.5-1.4) mg/dL Estim Creat Clear Calc 84.7 Estimated GFR > 60 Random Glucose 89 (60-115) mg/dL Calcium 9.5 (8.4-10.2) mg/dL Total Bilirubin 0.2 (0.0-1.0) mg/dL AST 16 (5-31) U/L ALT 13 (0-31) U/L Alkaline Phosphatase 37 L (39-117) U/L Troponin I High Sens < 2.7 (<3.5-17.0) ng/L Total Protein 7.4 (6.5-8.0) g/dL Albumin 4.4 (3.5-5.0) g/dL Independent Interpretation I performed an independent interpretation of an: EKG and Plain X-Ray (normal ) Interpretation: Rate: 70 Rhythm: NSR [place]: normal Normal P waves. Normal LIZETTE. Normal QRS complex. ST T wave : inverted t waves V1 qTC: 408 prior studies: no acute ischemia The study has been interpreted contemporaneously by me. . Radiology Impression Discussion of test interpretation with radiology: I have reviewed the radiologist's reading. External Record Review External record reviewed: Inpatient record Prescription Management I considered prescription management with: Other Discharge Plan Discharge Clinical Impression: Atypical chest pain Patient Disposition: Home, Self-Care Instructions: Chest Pain (ED) Additional Instructions: EKG reassuring, heart test negative return for worsening symptoms or concerns given breast complaint please call your doctor sunday for mammogram or ultrasound Prescriptions: New cyclobenzaprine 10 mg tablet 10 mg PO TID PRN (Reason: muscle spasm) Qty: 20 0RF No Action albuterol sulfate 90 mcg/actuation HFA aerosol inhaler 2 puff inhalation Q4-6H PRN (Reason: shortness of breath or wheezing) Qty: 8.5 1RF oxycodone 5 mg tablet 5 mg PO Q4H PRN (Reason: pain) 7 Days Qty: 42 0RF Rx Instructions: Partial Fill upon patient request. ibuprofen 800 mg tablet 800 mg PO Q6H Print Language: Togolese
[2024-05-11 03:16] VITALS: BP 115/71; PULSE 72; RESP 16; TEMP 36.8; O2SAT 99
== END 2024-05-11 03:17 | disposition home or self-care (01) ==
PROVIDERS: Emergency Provider Emergency Medicine
DX: R07.89 Other chest pain (principal); Z79.899 Other long term (current) drug therapy
CPT/HCPCS: 71046; 80053; 84484; 85025; 93005; 99284; 99285

== ENCOUNTER → 2024-05-11 01:31 | Outpatient (BNV) | payer MEDICAID, SELFPAY | PROVIDERS: Emergency Provider Emergency Medicine; Visit Provider Internal Medicine Cardiovascular Disease | DX: R94.31 Abnormal electrocardiogram [ECG] [EKG] (principal) | CPT/HCPCS: 93010 ==

== ENCOUNTER 2024-08-13 18:49 | Emergency (ER) | payer MEDICAID, SELFPAY ==
--- NOTE | ~2024-08-13 | US_ITS ---
EXAMINATION: US PELVIS CLINICAL INFORMATION: Right lower quadrant pain COMPARISON: CT abdomen and pelvis earlier today. TECHNIQUE: Ultrasound of the pelvis is performed using both transabdominal and transvaginal transducers along with Doppler. Transvaginal imaging is performed due to inadequate visualization transabdominally. FINDINGS: Uterus: The uterus is anteverted and measures 7.8 x 3.7 x 5.0 cm. The double wall endometrial thickness is 6 mm. The uterus is smooth in contour and has normal myometrial echogenicity. No visible fibroid. Adnexa: Both ovaries are visualized. There is normal color flow to the adnexa. There is no ovarian torsion. There is no pelvic ascites or fluid collection. Right ovary measures 3.8 x 2.5 x 3.6 cm for a volume of 17.9 mL which includes benign cysts, the largest measuring 2.4 cm. Left ovary measures 4.0 x 2.4 x 3.0 cm for a volume of 15.1 mL which includes a 2.0 cm benign hemorrhagic cyst and other smaller follicular cysts. US/US pelvic and transvaginal IMPRESSION: Unremarkable pelvic ultrasound. Electronically signed by: Dustin Rocha MD 08/13/2024 11:03 PM EDT
--- NOTE | ~2024-08-13 | US_ITS ---
EXAMINATION: US APPENDIX CLINICAL INFORMATION: Reason for Exam-abd pain COMPARISON: None. TECHNIQUE: Imaging of the right lower quadrant was performed with a high-frequency linear transducer using graded compression. FINDINGS: Appendix: Non-visualized appendix. Free Fluid: No. Increased Echogenicity Of Periappendiceal Fat: No. Mesenteric Lymph Nodes: No. Abscess: No. Right Kidney: Normal without hydronephrosis. Bladder: Not imaged Additional Abnormalities: None. US/US appendix IMPRESSION: Non-visualized appendix with no ancillary findings to suggest appendicitis. Electronically signed by: Dustin Rocha MD 08/13/2024 10:19 PM EDT
--- NOTE | ~2024-08-13 | XR_ITS ---
EXAMINATION: XR CHEST CLINICAL INFORMATION: Shortness of breath COMPARISON: Chest x-rays on 05/11/2024 TECHNIQUE: 2 views of the chest were obtained. FINDINGS: The cardiac silhouette is normal. There is mild diffuse bronchial wall thickening. Hazy opacity in the right midlung. There are no pleural effusions or pneumothoraces. The bones and soft tissues are unremarkable for the patient's age. XR/XR chest 2V IMPRESSION: 1. Bronchial wall thickening may be infectious and/or inflammatory in etiology. 2. Hazy opacity in the right midlung may be infectious in etiology. Electronically signed by: Tiffany Chapman MD 08/13/2024 09:20 PM EDT
--- NOTE | ~2024-08-13 | US_ITS ---
EXAMINATION: US PELVIS CLINICAL INFORMATION: Right lower quadrant pain COMPARISON: CT abdomen and pelvis earlier today. TECHNIQUE: Ultrasound of the pelvis is performed using both transabdominal and transvaginal transducers along with Doppler. Transvaginal imaging is performed due to inadequate visualization transabdominally. FINDINGS: Uterus: The uterus is anteverted and measures 7.8 x 3.7 x 5.0 cm. The double wall endometrial thickness is 6 mm. The uterus is smooth in contour and has normal myometrial echogenicity. No visible fibroid. Adnexa: Both ovaries are visualized. There is normal color flow to the adnexa. There is no ovarian torsion. There is no pelvic ascites or fluid collection. Right ovary measures 3.8 x 2.5 x 3.6 cm for a volume of 17.9 mL which includes benign cysts, the largest measuring 2.4 cm. Left ovary measures 4.0 x 2.4 x 3.0 cm for a volume of 15.1 mL which includes a 2.0 cm benign hemorrhagic cyst and other smaller follicular cysts. US/US pelvic ovarian doppler IMPRESSION: Unremarkable pelvic ultrasound. Electronically signed by: Dustin Rocha MD 08/13/2024 11:03 PM EDT
--- NOTE | ~2024-08-13 | CT_ITS ---
EXAMINATION: CT ABDOMEN AND PELVIS WITH CONTRAST CLINICAL INFORMATION: Right lower quadrant pain, rule out appendicitis COMPARISON: None available. TECHNIQUE: Multidetector volumetric images were obtained from the superior aspect of the liver through the pubic symphysis following administration 85 mL of Omnipaque 350 intravenous contrast. Sagittal and coronal reformatted images were obtained on the technologist's workstation. Oral contrast: No This CT examination was performed using dose optimization techniques as appropriate, variously including the following: *Automated exposure control *Adjustment of mA and/or kV according to patient size (this includes techniques or standardized protocols for targeted exams where dose is matched to indication/reason for exam; i.e. extremities or head) *Use of iterative reconstruction technique DLP: 330 mGy-cm FINDINGS: LUNG BASES: The visualized lung bases are unremarkable. LIVER, GALLBLADDER, AND BILIARY TREE: The liver is normal in size, shape, and attenuation. No focal hepatic lesion or biliary ductal dilatation is present. The gallbladder is unremarkable with no evidence of radiopaque gallstones, gallbladder wall thickening, or obvious pericholecystic inflammatory changes. PANCREAS: Unremarkable. SPLEEN: Unremarkable. ADRENAL GLANDS: Unremarkable. KIDNEYS AND URETERS: Bilateral punctate hypodensities which are to small to characterize. The kidneys are normal in size, shape, and attenuation. No hydronephrosis, hydroureter, or calculi seen. No perinephric stranding. BLADDER: Unremarkable. GASTROINTESTINAL TRACT: The small and large bowel are unremarkable. The appendix is unremarkable. ABDOMINAL WALL: No significant hernia is appreciated. LYMPH NODES: Normal. VASCULAR: Unremarkable. PELVIC VISCERA: Unremarkable. OSSEOUS STRUCTURES: Unremarkable. CT/CT abdomen pelvis w IV con IMPRESSION: No acute abnormality. Normal appendix. Fleischner guidelines were followed. Electronically signed by: Tiffany Chapman MD 08/13/2024 09:22 PM EDT
[2024-08-13 19:39] VITALS: BP 123/73; PULSE 98; RESP 28; TEMP 38.7; O2SAT 99; BMI 19.4
--- NOTE | 2024-08-13 19:42 | ECG_ITS ---
Test Reason : CP Blood Pressure : / mmHG Vent. Rate : 096 BPM Atrial Rate : 096 BPM P-R Int : 116 ms QRS Dur : 092 ms QT Int : 314 ms P-R-T Axes : 078 077 030 degrees QTc Int : 396 ms Normal sinus rhythm Possible Left atrial enlargement Nonspecific T wave abnormality Abnormal ECG When compared with ECG of 11-MAY-2024 01:42, No significant change was found Referred By: Love Matias Electronically Signed By:Torin Parekh
[2024-08-13 20:03] VITALS: BP 125/79; PULSE 91; RESP 16; TEMP 37.9; O2SAT 99
[2024-08-13] MEDS: Albuterol Sulfate 7.5 MG, Albuterol Sulfate (0.083%) 2.5 MG 10 MG INHALE (20:04)
[2024-08-13 20:05] VITALS: PULSE 98; RESP 20; O2SAT 97
[2024-08-13 20:16] LABS: MANUAL DIFF FLAG NO
[2024-08-13 20:19] LABS: VBG HCO3 28 mmol/L (22-26); VBG pCO2 40 mmHg; VBG pH 7.45 (7.32-7.43); VBG pO2 46 mmHg
[2024-08-13 20:20] LABS: Basophils Absolute Auto 0.1 X10*3/uL (0.0-0.2); Basophils Percent Auto 0.7 % (0-2); Eosinophils Percent Auto 0.3 % (0-4); Hematocrit 33.3 % (37.0-47.0); Hemoglobin 11.5 g/dl (12.0-16.0); Imm Gran Abs Auto 0.01 X10*3/uL (0.00-0.03); Imm Gran Pct Auto 0.1 % (0.0-0.4); Lymphocytes Absolute Auto 1.3 X10*3/uL (1.2-4.9); Lymphocytes Percent Auto 19.9 % (20-40); Mean Corpuscular HGB Conc 34.5 g/dl (31.0-35.0); Mean Corpuscular Hemoglobin 29.5 pg (27.0-33.0); Mean Corpuscular Volume 85.4 fL (80.0-98.0); Monocytes Absolute Auto 0.8 X10*3/uL (0.1-1.2); Monocytes Percent Auto 12.1 % (2-11); Neutrophils Absolute Auto 4.5 x10*3/uL (2.0-8.3); Neutrophils Percent Auto 66.9 % (45-73); Red Cell Distribution Width 12.2 % (11.0-16.0); White Blood Count 6.7 X10*3/uL (4.8-10.8)
[2024-08-13 20:22] LABS: Platelet Count 94 X10*3/uL (160-400)
[2024-08-13 20:23] LABS: Venous Blood Gas Refer to POC result
--- NOTE | 2024-08-13 20:25 | ED.GENADULT ---
HPI - General Adult General Chief complaint: Abdominal Pain Stated complaint: asthma Time Seen by Provider: 08/13/24 20:01 Source: patient Limitations: language barrier (In person interpreter for the deaf used) History of Present Illness ED Provider: David SMYTH narrative: 28-year-old female with past medical history of asthma presenting for abdominal pain, nausea, vomiting and shortness of breath. Patient states that she has been experiencing proximally 3 days of nausea, vomiting and right lower quadrant abdominal pain. Patient states that she has also been febrile and today she began experiencing shortness of breath and chest tightness. She states that her primary care physician wanted her to come to the emergency department to rule out appendicitis. Patient states that her last menstrual cycle ended approximately 12 days ago. She denies vaginal discharge/bleeding, diarrhea. Related Data Home Medications ?Medication ?Instructions ?Recorded ?Confirmed ibuprofen 800 mg tablet 800 mg PO Q6H 11/28/22 Previous Rx's ?Medication ?Instructions ?Recorded albuterol sulfate 90 mcg/actuation 2 puff inhalation Q4-6H PRN 07/29/22 aerosol inhaler shortness of breath or wheezing #8.5 grams oxycodone 5 mg tablet 5 mg PO Q4H PRN pain 7 days #42 01/23/23 tabs cyclobenzaprine 10 mg tablet 10 mg PO TID PRN muscle spasm #20 05/11/24 tabs cefuroxime axetil 500 mg tablet 500 mg PO Q12H 5 days #10 tabs 08/14/24 doxycycline hyclate 100 mg capsule 100 mg PO BID 5 days #10 caps 08/14/24 ondansetron 4 mg disintegrating 4 mg PO Q8H PRN nausea and 08/14/24 tablet vomiting 5 days #14 tabs prednisone 50 mg tablet 50 mg PO BID 5 days #10 tabs 08/14/24 Allergies Allergy/AdvReac Type Severity Reaction Status Date / Time No Known Allergies Allergy Verified 08/13/24 19:44 Review of Systems Review of Systems: Patient endorses shortness of breath, chest tightness, nausea, vomiting, abdominal pain Yes all other systems are reviewed and are negative [facility] Past Medical History Attestation statement: The following information was validated with the patient. [facility] Narrative: Asthma Medical History Asthma delivery delivered Surgical History Hx of elbow surgery Social History Social History Patient Tobacco Use Status: Never used Tobacco Tobacco use type: Cigarette Cigarettes Per Day: 3 Years Smoked: 2 years Smoked in Last 30 Days: No Use of substances other than those prescribed or required for medical reasons: No Advance Directives: No Advance Directives Information Provided: No Do you have a plan to hurt others: No Plan Current occupational status: unemployed Current occupation: right hand dominant Physical Exam ED Vital Signs: Vital Signs - 24 hr 08/13/24 19:39 08/13/24 20:03 08/13/24 20:05 Temperature 101.7 F H 100.3 F Pulse Rate 98 91 98 Respiratory Rate 28 H 16 20 Blood Pressure 123/73 125/79 Pulse Oximetry 99 99 Oxygen Delivery Method Room Air Room Air 08/13/24 21:40 08/13/24 21:50 08/14/24 00:05 Temperature 98.4 F 98.3 F Pulse Rate 102 H 110 H 85 Respiratory Rate 20 12 16 Blood Pressure 116/54 L 117/64 Pulse Oximetry 98 99 Oxygen Delivery Method Room Air Room Air 08/14/24 01:02 Temperature 98.3 F Pulse Rate 85 Respiratory Rate 16 Blood Pressure 117/64 Pulse Oximetry 99 Oxygen Delivery Method Room Air BMI result Body Mass Index 19.4 Well-appearing female Bilateral wheezing auscultated with good aeration Normal S1-S2 tachycardic Abdomen is soft, nondistended with right lower quadrant tenderness to palpation without guarding or rebound tenderness No lower extremity edema appreciated Course Reevaluation(s) Reevaluation #1: Patient is tachypneic and has a fever however I do not think that she is septic as she has asthma which likely explains her tachypnea and may have an underlying infection that is contributing to her fever however she is well-appearing Time: 20:28 Medications Administered Discontinued Medications Generic Name Dose Route Start Last Admin Trade Name Freq PRN Reason Stop Dose Admin Acetaminophen 650 mg 08/13/24 20:23 08/13/24 20:53 Acetaminophen 325 Mg Tablet PO 08/13/24 20:24 650 mg ONCE ONE Administration Albuterol Sulfate 7.5 mg/ 10 mg 08/13/24 19:59 08/13/24 20:04 Albuterol Sulfate 2.5 mg INHALE 08/13/24 20:00 10 mg ONCE ONE Administration Albuterol/Ipratropium 6 ml 08/13/24 20:24 08/13/24 21:38 Albuterol/Iprat 2.5/0.5mg 3 Ml Ampul.Neb INHALE 08/13/24 20:25 6 ml ONCE ONE Administration Albuterol/Ipratropium 3 ml 08/13/24 21:46 08/13/24 21:52 Albuterol/Iprat 2.5/0.5mg 3 Ml Ampul.Neb INHALE 08/13/24 21:47 3 ml ONCE ONE Administration Iohexol 100 ml 08/13/24 20:48 08/13/24 20:48 Iohexol 350 Mg/Ml 100 Ml Infus..Btl IV 08/13/24 20:49 85 ml ONCE ONE Administration Ketorolac Tromethamine 15 mg 08/13/24 22:36 08/13/24 22:56 Ketorolac Tromethamine 15 Mg/Ml Vial IVPUSH 08/13/24 22:37 15 mg ONCE ONE Administration Ondansetron HCl 4 mg 08/13/24 22:37 08/13/24 22:57 Ondansetron Hcl 4 Mg/2 Ml Vial IVPUSH 08/13/24 22:38 4 mg ONCE ONE Administration Prednisone 60 mg 08/13/24 20:24 08/13/24 20:52 Prednisone 20 Mg Tablet PO 08/13/24 20:25 60 mg ONCE ONE Administration Medical Decision Making Medical Decision Making [facility] Narrative: This is a young female with history of asthma presenting for shortness of breath, abdominal pain, nausea, vomiting. I am concerned for the following; asthma exacerbation, COVID, pneumonia, flu, appendicitis, ectopic , ovarian cyst, ovarian torsion, gastroenteritis -Labs and imaging studies ordered -DuoNeb, prednisone and Tylenol ordered -I did not appreciate bowel obstruction on patient's CT abdomen pelvis in the radiology interpretation is negative for appendicitis -I do not appreciate free fluid on patient's pelvic/transvaginal ultrasound and the radiology interpretation is negative for large cysts -appreciable look like right-sided infiltrates on chest x-ray. Radiology interpretation calling it hazy opacities -on reassessment patient reports improvement in symptoms -labs notable for normal white count and stable H&H, electrolytes within normal limits and normal creatinine, slightly elevated LFTs negative hCG -patient likely experiencing gastroenteritis -I sent Zofran, antibiotics and prednisone to her pharmacy and gave her home care and follow up instructions and return precautions Differential Diagnosis Differential Diagnoses: The differential diagnosis associated with the presentation includes Ovarian cysts/ruptured cyst, ovarian torsion, pneumonia, gastroenteritis, appendicitis, COVID, flu, asthma exacerbation Lab Data 08/13/24 20:11 08/13/24 20:11 Labs: Lab Results 08/13/24 08/13/24 08/13/24 Range/Units 20:11 20:16 21:07 WBC 6.7 (4.8-10.8) X10*3/uL RBC 3.90 L (4.20-5.50) X10*6/uL Hgb 11.5 L (12.0-16.0) g/dl Hct 33.3 L (37.0-47.0) % MCV 85.4 (80.0-98.0) fL MCH 29.5 (27.0-33.0) pg MCHC 34.5 (31.0-35.0) g/dl RDW 12.2 (11.0-16.0) % Plt Count 94 L D (160-400) X10*3/uL MPV 14.0 H (9.4-12.3) fL Immature Gran % (Auto) 0.1 (0.0-0.4) % Neut % (Auto) 66.9 (45-73) % Lymph % (Auto) 19.9 L (20-40) % [place] % (Auto) 12.1 H (2-11) % Eos % (Auto) 0.3 (0-4) % Baso % (Auto) 0.7 (0-2) % Lymph # (Auto) 1.3 (1.2-4.9) X10*3/uL [place] # (Auto) 0.8 (0.1-1.2) X10*3/uL Eos # (Auto) 0.0 (0.0-0.4) X10*3/uL Baso # (Auto) 0.1 (0.0-0.2) X10*3/uL Abs Immat Gran (auto) 0.01 (0.00-0.03) X10*3/uL Absolute Neuts (auto) 4.5 (2.0-8.3) x10*3/uL Absolute Nucleated RBC 0.000 (0.0-0.012) X10*3/uL Nucleated RBC % (auto) 0.0 (0.0-0.2) /100WBC VBG pH 7.45 H (7.32-7.43) VBG pCO2 40 mmHg VBG pO2 46 mmHg VBG HCO3 28 H (22-26) mmol/L VBG O2 Saturation 76.0 % VBG Base Excess 4.0 mmol/L Sodium 138 (135-145) mmol/L Potassium 3.5 (3.3-5.1) mmol/L Chloride 104 (96-108) mmol/L Carbon Dioxide 26 (22-29) mmol/L Anion Gap 12 (12-20) BUN 5 L (9-16) mg/dL Creatinine 0.77 (0.5-1.4) mg/dL Estim Creat Clear Calc 88.0 Estimated GFR > 60 Random Glucose 92 (60-115) mg/dL Lactic Acid 0.8 (0.5-2.0) mmol/L Calcium 9.2 (8.4-10.2) mg/dL Total Bilirubin 0.5 (0.0-1.0) mg/dL Direct Bilirubin 0.2 (0.0-0.5) mg/dL AST 37 H (5-31) U/L ALT 21 (0-31) U/L Alkaline Phosphatase 37 L (39-117) U/L Total Protein 7.4 (6.5-8.0) g/dL Albumin 4.2 (3.5-5.0) g/dL Beta HCG, Quant < 2 mIU/mL Urine Color Yellow Urine Appearance Clear Urine pH 7.0 (5.0-9.0) Ur Specific [place] 1.015 (1.005-1.025) Urine Protein Negative (Neg-Trace) mg/dL Urine Glucose (UA) Negative (Negative) mg/dL Urine Ketones Negative (Negative) mg/dL Urine Blood Trace H (Negative) Urine Nitrite Negative (Negative) Ur Leukocyte Esterase Trace H (Negative) Urine RBC 0-2 (0-2) /HPF Urine WBC 0-5 (0-5) /HPF Ur Squamous Epith Cells 3-5 (0-2) /HPF Urine Bacteria None Seen (None Seen) Hyaline Casts 0-2 (0-2) /LPF Urine Test NEGATIVE (NEGATIVE) Influenza Type A (PCR) NEGATIVE (Negative) Influenza Type B (PCR) NEGATIVE (Negative) RSV RNA Qual (PCR) NEGATIVE (Negative) SARS-CoV-2 RNA (RT-PCR) NEGATIVE (Negative) Discharge Plan Discharge Clinical Impression: Abdominal pain, Nausea & vomiting Patient Disposition: Home, Self-Care Additional Instructions: Por favor recoja mcallister nuevo medicamento seg?n las instrucciones. Nathaly un seguimiento con mcallister proveedor de atenci?n primaria en las pr?ximas 24 a 48 horas. Si desarrolla alg?n s?ntoma nuevo o que empeora, regrese al departamento de emergencias. Prescriptions: New ondansetron 4 mg tablet,disintegrating 4 mg PO Q8H PRN (Reason: nausea and vomiting) 5 Days Qty: 14 0RF prednisone 50 mg tablet 50 mg PO BID 5 Days Qty: 10 0RF cefuroxime axetil 500 mg tablet 500 mg PO Q12H 5 Days Qty: 10 0RF doxycycline hyclate 100 mg capsule 100 mg PO BID 5 Days Qty: 10 0RF No Action albuterol sulfate 90 mcg/actuation HFA aerosol inhaler 2 puff inhalation Q4-6H PRN (Reason: shortness of breath or wheezing) Qty: 8.5 1RF oxycodone 5 mg tablet 5 mg PO Q4H PRN (Reason: pain) 7 Days Qty: 42 0RF Rx Instructions: Partial Fill upon patient request. cyclobenzaprine 10 mg tablet 10 mg PO TID PRN (Reason: muscle spasm) Qty: 20 0RF ibuprofen 800 mg tablet 800 mg PO Q6H Interventions: ED Discharge Assessment Last Done: 08/14/24 01:02 Discharge Date/Time: 08/14/24 01:04 Print Language: Japanese
[2024-08-13 20:26] LABS: Lactic Acid 0.8 mmol/L (0.5-2.0)
--- NOTE | 2024-08-13 20:28 | PC.NURSE ---
diplomatic interpreter at bedside. pt a&ox4, tachy 100-102, respirations even and unlabored. pt reports abdominal pain x 1 week and asthma exacerbation x1 day. pt reports she presented to primary care who referred her to come to ED. pt reports 10/10 pain, n/v, last bowel movement 3 days ago. regular bowel sounds x4 quadrants. rebound tenderness positive in LLQ. 20g placed in r ac, labs obtained. respiratory at bedside to administer nebulizer treatment. provider aware of fever/HR, no sepsis called.
[2024-08-13 20:38] LABS: Alanine Aminotransferase 21 U/L (0-31); Albumin Level 4.2 g/dL (3.5-5.0); Alkaline Phosphatase 37 U/L (39-117); Anion Gap 12 (12-20); Aspartate Amino Transferase 37 U/L (5-31); Bilirubin Direct 0.2 mg/dL (0.0-0.5); Bilirubin Total 0.5 mg/dL (0.0-1.0); Blood Urea Nitrogen 5 mg/dL (9-16); Calcium 9.2 mg/dL (8.4-10.2); Carbon Dioxide 26 mmol/L (22-29); Chloride 104 mmol/L (96-108); Estimated Glomerular Filt Rate > 60; Glucose Random 92 mg/dL (60-115); HCG Quantitative < 2 mIU/mL; Potassium 3.5 mmol/L (3.3-5.1); Sodium 138 mmol/L (135-145); Total Protein 7.4 g/dL (6.5-8.0)
[2024-08-13] MEDS: iohexoL 350 MG/ML 100 ML INFUS..BTL IV (20:48)
[2024-08-13] MEDS: predniSONE 20 MG TABLET 60 MG PO (20:52)
[2024-08-13] MEDS: Acetaminophen 325 MG TABLET 650 MG PO (20:53)
[2024-08-13 20:54] LABS: Influenza A PCR NEGATIVE (Negative); Influenza B PCR NEGATIVE (Negative); Resp Syncy Virus RNA Qual PCR NEGATIVE (Negative); SARS COV2 PCR INHOUSE NEGATIVE (Negative)
[2024-08-13 21:15] LABS: Appearance Urine Clear; Color Urine Yellow; Glucose Urine UA Negative (Negative); Leukocyte Esterase Urine Trace (Negative); Nitrite Urine Negative (Negative); Specific Gravity - Urine 1.015 (1.005-1.025); UMIC TRIGGER UACC YES; Urine Blood Trace (Negative); Urine Ketones Negative (Negative); Urine Protein Negative (Neg-Trace)
[2024-08-13 21:16] LABS: UPreg QC Valid YES; Urine Pregnancy NEGATIVE (NEGATIVE)
[2024-08-13 21:21] LABS: Bacteria Urine None Seen (None Seen); Hyaline Casts Urine 0-2 /LPF (0-2); RBC Urine 0-2 /HPF (0-2); WBC Urine 0-5 /HPF (0-5)
[2024-08-13] MEDS: Albuterol/Iprat 2.5/0.5MG 3 ML AMPUL.NEB 6 ML INHALE (21:38)
[2024-08-13 21:40] VITALS: PULSE 102; RESP 20; O2SAT 98
[2024-08-13 21:50] VITALS: BP 116/54; PULSE 110; RESP 12; TEMP 36.9; O2SAT 98
[2024-08-13] MEDS: Albuterol/Iprat 2.5/0.5MG 3 ML AMPUL.NEB INHALE (21:52)
[2024-08-13] MEDS: Ketorolac Tromethamine 15 MG/ML VIAL IVPUSH (22:56)
[2024-08-13] MEDS: ondansetron HCL 4 MG/2 ML VIAL IVPUSH (22:57)
--- NOTE | 2024-08-13 22:57 | PC.NURSE ---
pt medicated per dec for nausea and 7/10 abdominal pain.
[2024-08-14 00:05] VITALS: BP 117/64; PULSE 85; RESP 16; TEMP 36.8; O2SAT 99
[2024-08-14 01:02] VITALS: BP 117/64; PULSE 85; RESP 16; TEMP 36.8; O2SAT 99
== END 2024-08-14 01:04 | disposition home or self-care (01) ==
PROVIDERS: Physician Assistant Medical; Emergency Provider Student in an Organized Health Care Education/Training Program
DX: R10.31 Right lower quadrant pain (principal); R06.02 Shortness of breath; J45.909 Unspecified asthma, uncomplicated; Z79.899 Other long term (current) drug therapy; Z03.818 Encounter for observation for suspected exposure to other biological agents ruled out
CPT/HCPCS: 0241U; 36415; 71046; 74177; 76705; 76830; 76856; 80048; 80076; 81001; 81025; 82803; 83605; 84702; 85025; 87040; 93005; 93975; 94640; 96374; 96375; 99285; J1885; J2405; Q9967

== ENCOUNTER → 2024-08-13 19:42 | Outpatient (BNV) | payer MEDICAID, SELFPAY | PROVIDERS: Emergency Provider Student in an Organized Health Care Education/Training Program; Visit Provider Internal Medicine Cardiovascular Disease | DX: R94.31 Abnormal electrocardiogram [ECG] [EKG] (principal) | CPT/HCPCS: 93010 ==

== ENCOUNTER 2024-08-21 05:04 | Emergency (ER) | payer MEDICAID, SELFPAY ==
--- NOTE | ~2024-08-21 | XR_ITS ---
EXAMINATION: XR CHEST CLINICAL INFORMATION: Cough COMPARISON: Chest 08/13/2024. TECHNIQUE: 2 views of the chest were obtained. FINDINGS: Normal appearance of the cardiomediastinal structures. No effusions or pneumothoraces. Vague groundglass and ill-defined reticular opacities are present over an approximate 3 cm diameter region projection with the anterior segment of the right third rib. A normal pattern of pulmonary vasculature is present elsewhere within the lungs. XR/XR chest 2V IMPRESSION: Vague focal groundglass and reticular opacities in projection with the right upper lung zone. Findings are suspicious for focal pneumonia either within the right upper pulmonary lobe or the superior segment of the right lower pulmonary lobe. Electronically signed by: Fahad Alvarado MD 08/21/2024 05:42 AM EDT
[2024-08-21 05:14] VITALS: BP 112/80; PULSE 95; RESP 20; TEMP 36.4; O2SAT 100; BMI 21.2
[2024-08-21 05:47] LABS: COVID-19 Test Negative (Negative); IDNOW Serial# 58CA691E; IDNOW Serial# 6674DD1D; Influenza A Negative (Negative); Influenza B2 Negative (Negative)
--- NOTE | 2024-08-21 05:52 | PC.NURSE ---
Patient is alert and oriented x4, VSS. Patient complaints of chest congestion, non-productive cough, runny nose and sore throat x 1 week. Patient swabbed for COVID-19 and Influenza, chest X-ray completed, results pending. Caregiver at bedside, call werner in patient's reach.
--- NOTE | 2024-08-21 06:43 | ED_ITS ---
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 Patient states that over the last week she has had body aches and a cough. Patient denies any dizziness, lightheadedness, abdominal pain, nausea, vomiting, fever, chills, blurry vision, double vision, loss of vision, chest pain, difficulty breathing, shortness of breath, back pain, night sweats, pain with urination, increased urinary frequency, increased urinary urgency, blood in her urine or stool, syncope or a near syncopal episode, recent trauma or falls, bowel incontinence, bladder incontinence, or any other complaints at this time. Onset (ago): week(s) (1) Relieving factors: none Exacerbating factors: none Associated symptoms: cough Treatments prior to arrival: none Related Data Home Medications ?Medication ?Instructions ?Recorded ?Confirmed ibuprofen 800 mg tablet 800 mg PO Q6H 11/28/22 Previous Rx's ?Medication ?Instructions ?Recorded albuterol sulfate 90 mcg/actuation 2 puff inhalation Q4-6H PRN 07/29/22 aerosol inhaler shortness of breath or wheezing #8.5 grams oxycodone 5 mg tablet 5 mg PO Q4H PRN pain 7 days #42 01/23/23 tabs cyclobenzaprine 10 mg tablet 10 mg PO TID PRN muscle spasm #20 05/11/24 tabs cefuroxime axetil 500 mg tablet 500 mg PO Q12H 5 days #10 tabs 08/14/24 doxycycline hyclate 100 mg capsule 100 mg PO BID 5 days #10 caps 08/14/24 ondansetron 4 mg disintegrating 4 mg PO Q8H PRN nausea and 08/14/24 tablet vomiting 5 days #14 tabs prednisone 50 mg tablet 50 mg PO BID 5 days #10 tabs 08/14/24 amoxicillin 875 mg-potassium 1 tab PO BID 10 days #20 tabs 08/21/24 clavulanate 125 mg tablet doxycycline hyclate 100 mg tablet 100 mg PO BID 7 days #14 tabs 08/21/24 Allergies Allergy/AdvReac Type Severity Reaction Status Date / Time No Known Allergies Allergy Verified 08/21/24 05:16 Review of Systems Constitutional: Constitutional: Reports no additional constitutional complaints, Reports body ache(s), Denies chills, Denies fever(s) and Denies night sweats Eyes: Eyes: Reports no additional eye complaints, Denies blurry vision, Denies change in vision, Denies diplopia, Denies eye discharge, Denies loss of vision and Denies eye pain ENT: Denies dizziness Cardiovascular: Cardiovascular: Reports no additional cardiovascular complaints, Denies chest pain, Denies lightheadedness, Denies Loss of Consciousness and Denies dyspnea Respiratory: Respiratory: Reports no additional respiratory complaints, Reports cough and Denies dyspnea Gastrointestinal: Gastrointestinal: Reports no additional gastrointestinal complaints, Denies abdominal pain, Denies melena, Denies hematochezia, Denies change in bowel habits and Denies change in stool character Genitourinary: Genitourinary: Denies hematuria, Denies urinary frequency, Denies dysuria, Denies urinary incontinence, Denies urinary hesitancy and Denies urinary urgency Musculoskeletal: Musculoskeletal: Reports no additional musculoskeletal complaints, Denies numbness and Denies tingling Neurologic: Denies dizziness, Denies loss of vision, Denies numbness and Denies tingling Psychiatric: Psychiatric: Reports no additional psychiatric complaints Endocrine: Endocrine: Reports no additional endocrine complaints Hematologic/Lymphatic: Hematologic/Lymphatic: Reports no additional hematologic/lymphatic complaints Allergic/Immunologic: Allergic/Immunologic: Reports no additional allergic/immunologic complaints [facility] Past Medical History Attestation statement: The following information was validated with the patient. Source: old records reviewed and nursing notes reviewed Medical History Asthma delivery delivered Surgical History Hx of elbow surgery Social History Social History Alcohol intake: never Patient Tobacco Use Status: Never used Tobacco Tobacco use type: Cigarette Cigarettes Per Day: 3 Years Smoked: 2 years Smoked in Last 30 Days: Yes Substance Use Type: Marijuana Substance Use Frequency: Daily Advance Directives: No Do you have a plan to hurt others: No Plan Patient : No Current occupational status: unemployed Current occupation: right hand dominant Physical Exam ED Vital Signs: Vital Signs - 24 hr 08/21/24 05:14 Temperature 97.6 F Pulse Rate 95 Respiratory Rate 20 Blood Pressure 112/80 Pulse Oximetry 100 Oxygen Delivery Method Room Air BMI result Body Mass Index 21.2 Const General: cooperative, no acute distress, alert and awake Nutritional Appearance: well nourished Orientation/consciousness: patient oriented x3 Limitations: no limitations HENMT Head: Yes normal to inspection and Yes atraumatic Ears: hearing grossly normal bilaterally and external ears normal General nose exam: Normal external nose present, no nasal discharge noted and no epistaxis Face and sinus: Yes normal facial exam, No abrasion and No laceration Mouth: Normal oral and palatal mucosa present, no drooling and no muffled voice Eyes General: appearance normal, both eyes and all related structures Periorbital: periorbital findings normal Eyelids: Yes eyelids normal Conjunctivae: conjunctivae normal Pupils: Equal, round and reactive pupils present EOM: EOMs intact bilaterally Neck Neck: Yes normal visual inspection, Yes full ROM and Yes no lymphadenopathy Chest Chest palpation & inspection: normal inspection of the chest Resp Effort & Inspection: normal respiratory effort and able to speak in complete sentences GI Inspection: Yes normal to inspection Neuro General: patient oriented x3 and moves all extremities Cranial nerves: Yes Equal, round and reactive pupils present Cognition (Neuro): normal cognition Extrem General: Yes normal to inspection, Yes full ROM and Yes capillary refill normal Psych Appearance: grossly normal Mental Status: mental status grossly normal Affect: normal affect Attitude: cooperative Thought process: Normal thought process present Thought content: Normal thought content present Insight: Good insight present (Psych) Medical Decision Making Medical Decision Making MDM Narrative: Patient is a 28 year old assigned female at with no reported medical history presenting to the emergency department today with a cough and body aches. Patient's physical exam was unremarkable. Patient's chest x-ray showed evidence of pneumonia. I explained my physical exam findings as well as all test results to the patient. I answered all questions asked by the patient. I stressed the importance of the patient taking her medication as directed (either prescribed or as the over the counter packaging recommends). I stressed the importance of the patient following up with her primary care provider. I stressed the importance of the patient returning to the emergency department immediately if her symptoms were to worsen or if she were to develop any dizziness, shortness of breath, difficulty breathing, chest pain, blurry vision, loss of vision, nausea, vomiting, abdominal pain, fever, chills, back pain, or any other complaints. Patient verbalized agreement and understanding with this treatment plan and discharge. Differential Diagnosis Differential Diagnoses: The differential diagnosis associated with the presentation includes Cough PNA COVID-19 Influenza RSV Admission/Observation Consideration of admission/observation: Escalation of care including admission/observation considered Patient would have been admitted to the hospital had her work up had any findings where hospital admission was appropriate and her clinical presentation warranted hospital admission. Lab Data [facility] Lab Attestation statement: I reviewed the patient's lab results. My interpretation of these results are in the [facility] Rationale portion of this note. Labs: Lab Results 08/21/24 Range/Units 05:24 COVID-19 (RICARDO) Negative (Negative) COVID-19 Clin Com See Note Influenza Type A (LIZET) Negative (Negative) Influenza Type B (LIZET) Negative (Negative) Influenza A & B Note See Note Independent Interpretation I performed an independent interpretation of an: Plain X-Ray Interpretation: My interpretation is in agreement with the radiologist's impression of this imaging study. EXAMINATION: XR CHEST CLINICAL INFORMATION: Cough COMPARISON: Chest 08/13/2024. TECHNIQUE: 2 views of the chest were obtained. FINDINGS: Normal appearance of the cardiomediastinal structures. No effusions or pneumothoraces. Vague groundglass and ill-defined reticular opacities are present over an approximate 3 cm diameter region projection with the anterior segment of the right third rib. A normal pattern of pulmonary vasculature is pr esent elsewhere within the lungs. XR/XR chest 2V IMPRESSION: Vague focal groundglass and reticular opacities in projection with the right upper lung zone. Findings are suspicious for focal pneumonia either within the right upper pulmonary lobe or the superior segment of the right lower pulmonary lobe. Electronically signed by: Fahad Alvarado MD 08/21/2024 05:42 AM EDT RP Dictated By: Fahad Alvarado MD Signed By: Electronically signed by Fahad Alvarado MD 08/21/24 0542 Radiology Impression Discussion of test interpretation with radiology: I have reviewed the radiologist's reading. Prescription Management I considered prescription management with: Antibiotic (patient prescribed antibiotics for PNA) Discharge Plan Discharge Clinical Impression: Pneumonia Patient Disposition: Home, Self-Care Instructions: Community Acquired Pneumonia (DC) Additional Instructions: Follow up with your primary care provider. Return to the emergency department immediately if your symptoms worsen or if you develop any dizziness, shortness of breath, difficulty breathing, chest pain, blurry vision, loss of vision, nausea, vomiting, abdominal pain, fever, chills, back pain, or any other complaints. Nathaly?seguimiento?con mcallister m?dico de atenci?n primaria. Acuda inmediatamente al servicio de urgencias si ruth s?ntomas empeoran o si presenta falta de aliento, dificultad para respirar, dolor tor?cico, mareos, aturdimiento, dolor de espalda, dolor abdominal, fiebre, escalofr?os o cualquier otro s?ntoma. Prescriptions: New doxycycline hyclate 100 mg tablet 100 mg PO BID 7 Days Qty: 14 0RF amoxicillin-pot clavulanate 875-125 mg tablet 1 tab PO BID 10 Days Qty: 20 0RF No Action albuterol sulfate 90 mcg/actuation HFA aerosol inhaler 2 puff inhalation Q4-6H PRN (Reason: shortness of breath or wheezing) Qty: 8.5 1RF oxycodone 5 mg tablet 5 mg PO Q4H PRN (Reason: pain) 7 Days Qty: 42 0RF Rx Instructions: Partial Fill upon patient request. cyclobenzaprine 10 mg tablet 10 mg PO TID PRN (Reason: muscle spasm) Qty: 20 0RF ondansetron 4 mg tablet,disintegrating 4 mg PO Q8H PRN (Reason: nausea and vomiting) 5 Days Qty: 14 0RF prednisone 50 mg tablet 50 mg PO BID 5 Days Qty: 10 0RF cefuroxime axetil 500 mg tablet 500 mg PO Q12H 5 Days Qty: 10 0RF doxycycline hyclate 100 mg capsule 100 mg PO BID 5 Days Qty: 10 0RF ibuprofen 800 mg tablet 800 mg PO Q6H Referrals: [facility] [Primary Care Provider] - Print Language: Tamazight
[2024-08-21 08:10] VITALS: BP 112/80; PULSE 95; RESP 20; TEMP 36.4; O2SAT 100
== END 2024-08-21 08:11 | disposition home or self-care (01) ==
PROVIDERS: Emergency Provider Emergency Medicine Emergency Medical Services
DX: J18.9 Pneumonia, unspecified organism (principal); R05.9 Cough, unspecified; R52 Pain, unspecified
CPT/HCPCS: 71046; 87502; 87635; 99283; 99284

== ENCOUNTER 2024-11-03 23:39 | Emergency (ER) | payer MEDICAID, SELFPAY ==
--- NOTE | ~2024-11-03 | XR_ITS ---
CLINICAL HISTORY: pain s p fall 3 view, pelvis and left hip Comparison: None Findings: No acute fracture or dislocation. No arthritic change. The soft tissues are unremarkable. IMPRESSION: No acute findings. This document has been electronically signed by: Jossie De La Paz MD on 11/04/2024 02:42:30
--- NOTE | ~2024-11-03 | XR_ITS ---
CLINICAL HISTORY: pain s p fall 3 views lumbar spine Comparison: CT/OR/SR - CT ABDOMEN PELVIS W IV CON - 08/13/24 20:41 EDT Findings: Grade 1 degenerative spondylolisthesis L5-S1 again noted. Slight convex right curvature. No acute fractures or dislocation. No arthritic changes. IMPRESSION: No acute fracture. This document has been electronically signed by: Jossie De La Paz MD on 11/04/2024 02:50:04
[2024-11-04 01:11] VITALS: BP 113/66; PULSE 82; RESP 18; TEMP 37; O2SAT 99; BMI 20.1
--- NOTE | 2024-11-04 03:29 | ED.FALL ---
HPI - Fall General Chief Complaint: Fall Stated Complaint: back pain Time Seen by Provider: 11/04/24 03:15 Source: patient Mode of arrival: ambulatory Limitations: no limitations History of Present Illness ED Provider: Dr. Sandrine Conrad HPI Narrative: Patient comes to emergency room complaining of lower back pain and buttocks pain for 1 week. Patient states that she fell down, landing on her buttocks. Patient denies any urinary/fecal incontinence/retention. Patient states that sometimes her leg cramps when she stands up. Related Data Home Medications ?Medication ?Instructions ?Recorded ?Confirmed ibuprofen 800 mg tablet 800 mg PO Q6H 11/28/22 Previous Rx's ?Medication ?Instructions ?Recorded albuterol sulfate 90 mcg/actuation 2 puff inhalation Q4-6H PRN 07/29/22 aerosol inhaler shortness of breath or wheezing #8.5 grams oxycodone 5 mg tablet 5 mg PO Q4H PRN pain 7 days #42 01/23/23 tabs cyclobenzaprine 10 mg tablet 10 mg PO TID PRN muscle spasm #20 05/11/24 tabs cefuroxime axetil 500 mg tablet 500 mg PO Q12H 5 days #10 tabs 08/14/24 doxycycline hyclate 100 mg capsule 100 mg PO BID 5 days #10 caps 08/14/24 ondansetron 4 mg disintegrating 4 mg PO Q8H PRN nausea and 08/14/24 tablet vomiting 5 days #14 tabs prednisone 50 mg tablet 50 mg PO BID 5 days #10 tabs 08/14/24 amoxicillin 875 mg-potassium 1 tab PO BID 10 days #20 tabs 08/21/24 clavulanate 125 mg tablet doxycycline hyclate 100 mg tablet 100 mg PO BID 7 days #14 tabs 08/21/24 cyclobenzaprine 5 mg tablet 5 mg PO BEDTIME PRN muscle spasm 11/04/24 #7 tabs ibuprofen 600 mg tablet 600 mg PO TID PRN fever or pain 11/04/24 #20 tabs Allergies Allergy/AdvReac Type Severity Reaction Status Date / Time No Known Allergies Allergy Verified 11/04/24 01:16 Review of Systems Review of Systems: Constitutional : No Weight loss, No Fever, No Chills, No Night Sweats, No Fatigue, No Malaise ENT/Mouth : No Hearing loss, No Ear Pain, No Nasal Congestion, No Sinus Pain, No Hoarseness, No sore throat, No Rhinorrhea, No Swallowing Difficulty Eyes: No Eye Pain, No Swelling, No Redness, No Foreign Body, No Discharge, No Vision Changes Cardiovascular : No Chest Pain, No SOB, No Dyspnea on Exertion, No Orthopnea, No Edema, No Palpitations Respiratory : No Cough, No Sputum, No Wheezing, No Smoke Exposure, No Dyspnea Gastrointestinal : No Nausea, No Vomiting, No Diarrhea, No Constipation, No abdominal Pain, No Hematochezia, No Melena Genitourinary : no irregular bleeding, No Dysuria, No Urinary Frequency, No Hematuria, No Urinary Incontinence, No Urgency, No Flank Pain, No Urinary Flow Changes, No Hesitancy Musculoskeletal : Complaining of pain in the buttocks. No joint pain, No Myalgias, No Joint Swelling Skin : No Skin Lesions, No rash Neuro : No Weakness, No Numbness, No Paresthesias, No Loss of Consciousness, No Dizziness, No Headache Psych : No Anxiety/Panic, No Depression, No SI/HI/AH/VH, No Social Issues, Heme/Lymph: No Bruising, No Bleeding,No Lymphadenopathy Endocrine : No Polyuria, No Polydipsia, No Temperature Intolerance PMFSH Past Medical History Medical History Asthma delivery delivered Surgical History Hx of elbow surgery Social History Social History Alcohol intake: never Patient Tobacco Use Status: Never used Tobacco Tobacco use type: Cigarette Cigarettes Per Day: 3 Years Smoked: 2 years Substance Use Type: Marijuana Advance Directives: No Advance Directives Information Provided: Yes Current occupational status: unemployed Current occupation: right hand dominant Physical Exam Vital Signs: Vital Signs: Last Vital Signs Temp 98.6 F 11/04/24 01:11 Pulse 82 11/04/24 01:11 Resp 18 11/04/24 01:11 BP 113/66 11/04/24 01:11 Pulse Ox 99 11/04/24 01:11 O2 Del Method Room Air 11/04/24 01:11 BMI result Body Mass Index 20.1 Const: Other: Appearance: Alert. Oriented X3. No acute distress. Eyes: Pupils equal, round and reactive to light. ENT: Pharynx normal. Neck: Normal inspection. Neck supple. No lymph nodes noted. No crepitus CVS: Normal heart rate and rhythm. Pulses normal. Normal S1 and S2 Respiratory: No respiratory distress. Breath sounds normal. No Wheezing. No rales Abdomen: Soft and nontender. No rigidity. No distention. Skin: Skin warm and dry. Normal skin color. Normal skin turgor. Extremities: No lower extremity edema. No Lacerations. No Rash Neuro: Oriented X 3. No motor deficit. No sensory deficit. Moving all extremities. No slurred speech. CN 2 through 12 grossly intact, normal gait Psych: calm, cooperative, normal affect Medical Decision Making Medical Decision Making MDM Narrative: I discussed the imaging with the patient, no acute fractures. Independent Interpretation I performed an independent interpretation of an: Plain X-Ray Radiology Impression Discussion of test interpretation with radiology: I have reviewed the radiologist's reading. Radiologist Impression: Grade 1 degenerative spondylolisthesis L5-S1 again noted. Slight convex right curvature. No acute fractures or dislocation. No arthritic changes. IMPRESSION: No acute fracture. No acute fracture or dislocation. No arthritic change. The soft tissues are unremarkable. IMPRESSION: No acute findings. Discharge Plan Discharge Clinical Impression: Contusion Patient Disposition: Home, Self-Care Instructions: Contusion in Adults (ED) Additional Instructions: Please follow-up with your primary care physician tomorrow. If you have any worsening or new symptoms, please return to the emergency room or call 911 Prescriptions: New ibuprofen 600 mg tablet 600 mg PO TID PRN (Reason: fever or pain) Qty: 20 0RF cyclobenzaprine 5 mg tablet 5 mg PO BEDTIME PRN (Reason: muscle spasm) Qty: 7 0RF No Action albuterol sulfate 90 mcg/actuation HFA aerosol inhaler 2 puff inhalation Q4-6H PRN (Reason: shortness of breath or wheezing) Qty: 8.5 1RF oxycodone 5 mg tablet 5 mg PO Q4H PRN (Reason: pain) 7 Days Qty: 42 0RF Rx Instructions: Partial Fill upon patient request. cyclobenzaprine 10 mg tablet 10 mg PO TID PRN (Reason: muscle spasm) Qty: 20 0RF ondansetron 4 mg tablet,disintegrating 4 mg PO Q8H PRN (Reason: nausea and vomiting) 5 Days Qty: 14 0RF prednisone 50 mg tablet 50 mg PO BID 5 Days Qty: 10 0RF cefuroxime axetil 500 mg tablet 500 mg PO Q12H 5 Days Qty: 10 0RF doxycycline hyclate 100 mg capsule 100 mg PO BID 5 Days Qty: 10 0RF doxycycline hyclate 100 mg tablet 100 mg PO BID 7 Days Qty: 14 0RF amoxicillin-pot clavulanate 875-125 mg tablet 1 tab PO BID 10 Days Qty: 20 0RF ibuprofen 800 mg tablet 800 mg PO Q6H Print Language: Welsh
[2024-11-04 03:49] VITALS: BP 120/68; PULSE 86; RESP 18; TEMP 37; O2SAT 99
== END 2024-11-04 03:50 | disposition home or self-care (01) ==
PROVIDERS: Emergency Provider Emergency Medicine
DX: S30.0XXA Contusion of lower back and pelvis, initial encounter (principal); W17.89XA Other fall from one level to another, initial encounter; M54.50 Low back pain, unspecified; Y93.9 Activity, unspecified; Y92.019 Unspecified place in single-family (private) house as the place of occurrence of the external cause; Y99.9 Unspecified external cause status
CPT/HCPCS: 72100; 73502; 99282; 99283

== ENCOUNTER → 2024-11-04 02:10 | Outpatient (BNV) | payer MEDICAID, SELFPAY | PROVIDERS: Visit Provider Radiology Diagnostic Radiology | DX: M54.50 Low back pain, unspecified (principal); M25.552 Pain in left hip | CPT/HCPCS: 72100; 73502 ==

== ENCOUNTER 2024-11-27 23:56 | Emergency (ER) | payer MEDICAID, SELFPAY ==
--- NOTE | ~2024-11-27 | XR_ITS ---
CLINICAL HISTORY: cough asthma 2 view chest x-ray Comparison: CR/OK/SR - XR CHEST 2V - 08/21/24 05:29 EDT Findings: No consolidation or effusion. Heart size is normal. No acute fracture. IMPRESSION: 1. No acute findings. This document has been electronically signed by: Doretha Trinh MD on 11/28/2024 00:59:37
[2024-11-28] VITALS: BP 126/78; PULSE 78; O2SAT 98
[2024-11-28 00:10] VITALS: BP 119/68; PULSE 98; RESP 20; TEMP 37.1; O2SAT 97; BMI 20.5
[2024-11-28 00:59] LABS: Influenza A PCR POSITIVE (Negative); Influenza B PCR NEGATIVE (Negative); Resp Syncy Virus RNA Qual PCR NEGATIVE (Negative); SARS COV2 PCR INHOUSE NEGATIVE (Negative)
--- OUTSIDE RECORDS SUMMARY | 2024-11-28 03:52 | XMS_ITS | Encounter Summary ---
Author Organization [employer] Address [address] [facility] 7 [place] [address] Care Team Providers Care Cane Flume Watchman Name Role Phone Unavailable Primary Care Provider Unavailabl e Reason for Visit * Reason Onset Date Comments new patient appt 05/12/2024 Encounter Details Date Type Department Care Team (Late st Contact Info) Description 05/12/2024 Telephone [facility] [address] [place] [address] Ivan Trotter MD [address] [place] [address] new patient appt Social History Tobacco Use Types Packs/Day Years Used Date Smoking Tobacco: Never Assessed Comments Unknown Sex and Gender Information Value Date Recorded Sex Assigned at Female 08/13/2024 2:54 PM EDT Legal Sex Female 1:47 PM EDT Gender Identity Female 08/13/2024 2:54 PM EDT Sexual Orientation Straight 08/13/2024 2: 54 PM EDT documented as of this encounter Miscellaneous Notes * Telephone Encounter - Adrian Frias - 05/12/2024 2:04 PM EDT Patient added to [facility] New Patient wait list as of 05-12-2024 * Telephone Encounter - Hodan Graham - 05/12/2024 1:51 PM EDT TC from caller requesting NEW PATIENT visit . Medical Conditions: No Insurance name : [facility] Demographic information updated : Yes documented in this encounter Plan of Treatment Not on file documented as of this encounter Visit Diagnoses Not on filedocumented in this encounter
--- OUTSIDE RECORDS SUMMARY | 2024-11-28 03:52 | XMS_ITS | Clinical Summary ---
Author Organization [employer] Address [address] [facility] 7t [place] [address] Care Team Providers Care Felt Dyeing Machine Tender Name Role Phone Unavailable Primary Care Provider Unavailabl e Allergies No known active allergies Medications albuterol 108 (90 Base) MCG/ACT inhalerIndicatio ns:Cough, unspecified type Inhale 2 puffs every 6 (six) hours if needed for wheezing. 18 g 1 08/13/2024 Active Social History Tobacco Use Types Packs/Day Years Used Date Smoking Tobacco: Every Day Cigarettes Passive Smoke Exposure: Current Smokeless Tobacco: Never Tobacco Cessation:Ready to Q uit: Not Asked; Counseling Given: Not Answered Alcohol Use Standard Drinks/Week Comments Never 0 (1 standard drink = 0.6 oz pur e alcohol) Comments Unknown Sex and Gender Information Value Date Recorded Sex Assigned at Female 08/13/2024 2:54 PM EDT Legal Sex Female 1:47 PM EDT Gender Identity Female 08/13/2024 2:54 PM EDT Sexual Orientation Straight 08/13/2024 2: 54 PM EDT Last Filed Vital Signs Vital Sign Reading Time Taken Comments Blood Pressure 127/77 08/13/2024 5:55 PM EDT Pulse 95 08/13/2024 5:55 PM EDT Temperature 38.9 ??C (102 ??F) 08/13/2024 6:52 PM EDT Respiratory Rate 20 08/13/2024 5:55 PM EDT Oxygen Saturation 100% 08/13/2024 5:55 PM EDT Inhaled Oxygen Concentration - - Weight 51.3 kg (113 lb 3.2 oz) 08/13/2024 5:55 P M EDT Height 162.6 cm (5' 4 ) 08/13/2024 5:55 PM EDT Body Mass Index 19.43 08/13/2024 5:55 PM EDT Plan of Treatment Health Maintenance Due Date Last Done Comments Depression Screening 1995 HIV Screening 1995 Lipid Panel 1995 SDOH Screening 1995 Alcohol/Substance Use Screening 2007 Family Planning (PISQ) 2010 Hepatitis C Screening 2013 DTaP/Tdap/Td Vaccines (1 - Tdap) 2014 Hepatitis B Vaccines (1 of 3 - 19+ 3-dose series) 2014 Pneumococcal Vaccine: Pediat rics (0 to 5 Years) and At-Risk Patients (6 to 49) Years) (1 of 2 - PCV) 2014 Pap Smear 2016 COVID-19 Vaccine (1 - 2023-2 5 season) 2024 Influenza Vaccine (#1) 2024 Tobacco Screening 08/13/2025 08/13/2024 Zoster Vaccines (1 of 2) 2045 RSV Patients and Pa tients Aged 60 years or older (1 - 1-dose 75+ series) 2070 HIB Vaccines Aged Out No longer eligi ble based on patient's age to complete this topic HPV Vaccines Aged Out No longer eligi ble based on patient's age to complete this topic Hepatitis A Vaccines Aged Out No long er eligible based on patient's age to complete this topic IPV Vaccines Aged Out No longer eligi ble based on patient's age to complete this topic Meningococcal Vaccine Aged Out No karena scott eligible based on patient's age to complete this topic RSV under 20 months Aged Out No longe r eligible based on patient's age to complete this topic Rotavirus Vaccines Aged Out No longer eligible based on patient's age to complete this topic Insurance [facility] C3
--- NOTE | 2024-11-28 05:04 | ED_ITS ---
HPI - Asthma General Chief Complaint: Asthma Stated Complaint: SOB cough Time Seen by Provider: 11/28/24 03:52 Source: patient Mode of arrival: ambulatory Limitations: no limitations History of Present Illness ED Provider: HPI Narrative: Patient's history of asthma been congested and coughing since yesterday with wheezing no fever no chills using inhaler without much response patient was tested positive for influenza A Related Data Home Medications ?Medication ?Instructions ?Recorded ?Confirmed ibuprofen 800 mg tablet 800 mg PO Q6H 11/28/22 Previous Rx's ?Medication ?Instructions ?Recorded albuterol sulfate 90 mcg/actuation 2 puff inhalation Q4-6H PRN 07/29/22 aerosol inhaler shortness of breath or wheezing #8.5 grams oxycodone 5 mg tablet 5 mg PO Q4H PRN pain 7 days #42 01/23/23 tabs cyclobenzaprine 10 mg tablet 10 mg PO TID PRN muscle spasm #20 05/11/24 tabs cefuroxime axetil 500 mg tablet 500 mg PO Q12H 5 days #10 tabs 08/14/24 doxycycline hyclate 100 mg capsule 100 mg PO BID 5 days #10 caps 08/14/24 ondansetron 4 mg disintegrating 4 mg PO Q8H PRN nausea and 08/14/24 tablet vomiting 5 days #14 tabs prednisone 50 mg tablet 50 mg PO BID 5 days #10 tabs 08/14/24 amoxicillin 875 mg-potassium 1 tab PO BID 10 days #20 tabs 08/21/24 clavulanate 125 mg tablet doxycycline hyclate 100 mg tablet 100 mg PO BID 7 days #14 tabs 08/21/24 cyclobenzaprine 5 mg tablet 5 mg PO BEDTIME PRN muscle spasm 11/04/24 #7 tabs ibuprofen 600 mg tablet 600 mg PO TID PRN fever or pain 11/04/24 #20 tabs albuterol sulfate 90 mcg/actuation 2 puff inhalation Q6H PRN 11/28/24 aerosol inhaler shortness of breath or wheezing #8.5 grams benzonatate 200 mg capsule 200 mg PO TID PRN cough #20 caps 11/28/24 oseltamivir 75 mg capsule (Tamiflu) 75 mg PO BID 5 days #10 caps 11/28/24 prednisone 20 mg tablet 40 mg (2 x 20 mg) PO DAILY #10 tabs 11/28/24 Allergies Allergy/AdvReac Type Severity Reaction Status Date / Time No Known Allergies Allergy Verified 11/28/24 00:12 Review of Systems Review of Systems: Yes all other systems are reviewed and are negative [facility] Past Medical History Medical History Asthma delivery delivered Surgical History Hx of elbow surgery Social History Social History Alcohol intake: never Patient Tobacco Use Status: Never used Tobacco Tobacco use type: Cigarette Cigarettes Per Day: 3 Years Smoked: 2 years Substance Use Type: Marijuana Advance Directives: No Do you have a plan to hurt others: No Plan Current occupational status: unemployed Current occupation: right hand dominant Physical Exam Vital Signs: Vital Signs: Last Vital Signs Temp 98.6 F 11/28/24 05:26 Pulse 81 11/28/24 05:26 Resp 16 11/28/24 05:26 BP 121/72 11/28/24 05:26 Pulse Ox 98 11/28/24 05:26 O2 Del Method Room Air 11/28/24 05:26 BMI result Body Mass Index 20.5 Appearance: Alert. Oriented X3. No acute distress. ENT: Pharynx normal. Oral Mucosa moist clear rhinorrhea Neck: Normal inspection. Neck supple. CVS: Normal heart rate and rhythm. Pulses normal. Respiratory: No respiratory distress. Equal air entry bilateral, bilateral wheezing Skin: Skin warm and dry. Normal skin color. Normal skin turgor. Extremities: No lower extremity edema. Neuro: Oriented X 3. Medications Administered Discontinued Medications Generic Name Dose Route Start Last Admin Trade Name Freq PRN Reason Stop Dose Admin Albuterol Sulfate 4 puff 11/28/24 04:42 11/28/24 05:21 Albuterol Sulfate 90 Mcg 8 Gm Inhaler INHALE 11/28/24 04:43 4 puff ONCE ONE Administration Guaifenesin/Codeine Phosphate 10 ml 11/28/24 04:42 11/28/24 05:21 Guaifen/Codeine Sf 200/20/10ml 10 Ml Liquid PO 11/28/24 04:43 10 ml ONCE ONE Administration Oseltamivir Phosphate 75 mg 11/28/24 04:42 11/28/24 05:21 Oseltamivir Phosphate 75 Mg Capsule PO 11/28/24 04:43 75 mg ONCE ONE Administration Prednisone 40 mg 11/28/24 04:42 11/28/24 05:21 Prednisone 20 Mg Tablet PO 11/28/24 04:43 40 mg ONCE ONE Administration Medical Decision Making Medical Decision Making MDM Narrative: You have influenza A with asthma cough drops prednisone and inhaler as prescribed Lab Data [facility] Lab Attestation statement: I reviewed the patient's lab results. Labs: Lab Results 11/28/24 Range/Units 00:17 Influenza Type A (PCR) POSITIVE A (Negative) Influenza Type B (PCR) NEGATIVE (Negative) RSV RNA Qual (PCR) NEGATIVE (Negative) SARS-CoV-2 RNA (RT-PCR) NEGATIVE (Negative) Independent Interpretation I performed an independent interpretation of an: Plain X-Ray Interpretation: NAD Radiology Impression Discussion of test interpretation with radiology: I have reviewed the radiologist's reading. Discharge Plan Discharge Clinical Impression: Asthma with acute exacerbation, Influenza A Patient Disposition: Home, Self-Care Instructions: Asthma (ED), Influenza (ED) Additional Instructions: Continue to use your inhaler Cough drops Tamiflu and prednisone as prescribed Drink plenty of fluids Prescriptions: New benzonatate 200 mg capsule 200 mg PO TID PRN (Reason: cough) Qty: 20 0RF prednisone 20 mg tablet 40 mg PO DAILY Qty: 10 0RF oseltamivir [Tamiflu] 75 mg capsule 75 mg PO BID 5 Days Qty: 10 0RF albuterol sulfate 90 mcg/actuation HFA aerosol inhaler 2 puff inhalation Q6H PRN (Reason: shortness of breath or wheezing) Qty: 8.5 0RF No Action albuterol sulfate 90 mcg/actuation HFA aerosol inhaler 2 puff inhalation Q4-6H PRN (Reason: shortness of breath or wheezing) Qty: 8.5 1RF oxycodone 5 mg tablet 5 mg PO Q4H PRN (Reason: pain) 7 Days Qty: 42 0RF Rx Instructions: Partial Fill upon patient request. cyclobenzaprine 10 mg tablet 10 mg PO TID PRN (Reason: muscle spasm) Qty: 20 0RF ondansetron 4 mg tablet,disintegrating 4 mg PO Q8H PRN (Reason: nausea and vomiting) 5 Days Qty: 14 0RF prednisone 50 mg tablet 50 mg PO BID 5 Days Qty: 10 0RF cefuroxime axetil 500 mg tablet 500 mg PO Q12H 5 Days Qty: 10 0RF doxycycline hyclate 100 mg capsule 100 mg PO BID 5 Days Qty: 10 0RF doxycycline hyclate 100 mg tablet 100 mg PO BID 7 Days Qty: 14 0RF amoxicillin-pot clavulanate 875-125 mg tablet 1 tab PO BID 10 Days Qty: 20 0RF ibuprofen 600 mg tablet 600 mg PO TID PRN (Reason: fever or pain) Qty: 20 0RF cyclobenzaprine 5 mg tablet 5 mg PO BEDTIME PRN (Reason: muscle spasm) Qty: 7 0RF ibuprofen 800 mg tablet 800 mg PO Q6H Interventions: ED Discharge Assessment Last Done: 11/28/24 05:26 Print Language: [place] Islander
[2024-11-28 05:20] VITALS: BP 121/72; PULSE 81; RESP 16; TEMP 37; O2SAT 98
[2024-11-28] MEDS: predniSONE 20 MG TABLET 40 MG PO (05:21)
[2024-11-28] MEDS: Oseltamivir Phosphate 75 MG CAPSULE PO (05:21)
[2024-11-28] MEDS: guaiFEN/Codeine SF 200/20/10ML 10 ML LIQUID PO (05:21)
[2024-11-28] MEDS: Albuterol Sulfate 90 MCG 8 GM INHALER 4 PUFF INHALE (05:21)
[2024-11-28 05:26] VITALS: BP 121/72; PULSE 81; RESP 16; TEMP 37; O2SAT 98
== END 2024-11-28 05:29 | disposition home or self-care (01) ==
PROVIDERS: Emergency Provider Internal Medicine
DX: J10.1 Influenza due to other identified influenza virus with other respiratory manifestations (principal); J45.901 Unspecified asthma with (acute) exacerbation; R06.02 Shortness of breath; R05.9 Cough, unspecified; F17.210 Nicotine dependence, cigarettes, uncomplicated; Z03.818 Encounter for observation for suspected exposure to other biological agents ruled out
CPT/HCPCS: 0241U; 71046; 99283

== ENCOUNTER → 2024-11-28 00:24 | Outpatient (BNV) | payer MEDICAID, SELFPAY | PROVIDERS: Visit Provider Radiology Diagnostic Radiology | DX: R05.9 Cough, unspecified (principal) | CPT/HCPCS: 71046 ==

== ENCOUNTER 2025-02-02 08:31 | Outpatient (REF) | payer MEDICAID, SELFPAY ==
--- NOTE | ~2025-02-02 | XR_ITS ---
CLINICAL HISTORY: M79.642 - Pain in left hand 3 views left hand Comparison: None Findings: No fractures . No significant arthritic change No erosions No radiopaque foreign body Impression: In the region of interest no abnormality related to the 1st metacarpal phalangeal joint is identified. In the oblique view there is dorsal displacement of the distal ulnar articular surface suspicious for distal ulnar radius joint instability, although this appearance may be only positional. If there are symptoms involving the ulnar carpal joints, MRI or CT would be recommended, prefer MRI. This document has been electronically signed by: Jose Shaw MD on 02/02/2025 21:30:35
--- OUTSIDE RECORDS SUMMARY | 2025-02-02 08:57 | XMS_ITS | Clinical Summary ---
Author Organization [facility] Address [address] [facility] 7t [place] [address] Care Team Providers Care Piano Sounding Board Matcher Name Role Phone Unavailable Primary Care Provider Unavailabl e Allergies No known active allergies Medications albuterol 108 (90 Base) MCG/ACT inhalerIndicatio ns:Cough, unspecified type Inhale 2 puffs every 6 (six) hours if needed for wheezing. 18 g 1 08/13/2024 Active Encounters Date Type Department Care Team Description 01/02/2025 Population Health Risk Score [facility] (C3) Department [address] [address] Provider, Population Health Generic from Last 3 Months Social History Tobacco Use Types Packs/Day Years [...] patient's age to complete this topic Insurance [employer] C3
--- OUTSIDE RECORDS SUMMARY | 2025-02-02 08:57 | XMS_ITS | Continuity of Care Document ---
Author Organization [facility] Address [address] [place] [address] Phone Care Team Providers Care Graining Press Operator Name Role Phone Celina Cisneros APN Unavailable Unavailable Medications Medication Instructions Dosage Effective Dates (start - stop) Status Comments valacyclovir 1 g tablet take 1 tablet (1000MG) by oral route every day 1000 MG - Active Plus 27 mg-1 mg Tab take 1 tablet by oral route every day - Active Procedures Procedure Date Office/outpatient visit,[facility] 2015 Advance Directives Directive Yes / No Effective Date File Name No Information Encounters Encounter Description Practice Location Reason(s) For Visit Diagnoses Date Provider Office/outpati ent visit,[facility], [address] [place] [address], tel:[phone] [facility] f/u to 06/03 ER Visit (chief complaint) Nausea and vomiting in prior to 22 weeks gestationLess than 8 weeks gestation of Blayne Patrick. [address] [place] [address], [id number] [place] [address]. [facility], [address] [place] [address] tel:[phone] [facility] OB SURG COMP NEC-POSTPAR Noah Cavanaugh. [address] [place] [address], [id number] [address] [place] [address]. [facility], [address] [place] [address], tel:[phone] [facility] No Information Franck Kirk Ylbe. [address], [place], [place], [facility], . [facility], [address] [place] [address], [facility], tel:[phone] [facility] No Information Brianna Starks. [address], [id number] [place], [facility], . [facility], [address] [place] [address], [facility], tel:[phone] [facility] No Information Verónica Carreno. [address], [place], [place], [facility], . [address] tel:[phone] [facility] No Information Noah Cavanaugh. [address], [id number] [address] [place] [address], [facility], . [address], [facility], tel:[phone] [facility] PN visit (chief complaint) No Information Laureano Roland. [address] [place] [address], [id number] [address] [place] [address], [facility], . tel:[phone], [facility], tel:[phone] [facility] No Information Noah Cavanaugh. [address], [id number] [address] [place] [address], [facility], . [address], [facility], tel:[phone] [facility] No Information Franck Kirk Ylbe. [address], [place], [place], [facility], . [facility], [address] [place] [address] tel:[phone] [facility] No Information Franck Kirk Ylbe. [address] [facility], [place], [place], [address] [place] [address]. [facility], [address] [place] [address] tel:[phone] [facility] care (chief complaint) No Information Noah Cavanaugh. [address] [facility], [id number] [address] [place] [address]. [facility], [address] [place] [address] tel:[phone] [facility] care (chief complaint) No Information Franck Kirk Ylbe. [facility] S [facility], [address] [facility], [address] [place] [address] tel:[phone] [facility] No Information Blayne Patrick. [address] [place] [address], [address] [place] [address]. [facility], [address] [place] [address] tel:[phone] [facility] No Information Blayne Patrick. [address] [place] [address], [address] [place] [address]. [facility], [address] [place] [address] tel:[phone] [facility] PN visit (chief complaint) SUPERVIS OTH NORMAL PREG Laureano Roland. [address] [place] [address], [id number] [address] [place] [address]. tel:[phone] [facility], [address] [place] [address] tel:[phone] [facility] SUPERVIS NORMAL 1ST PREG Nursing Nursing. [address] [facility], [id number] [address] [place] [address], [address], [place]. tel:[phone] [facility], [address] [place], [place], [facility], tel:[phone] [facility] OB psychosocial intake (chief complaint) OBSERV-MENTAL COND NEC Susan Ordaz. [address], [id number] [address] [place] [address], [address], [place]. Family History Family Member Type Diagnosis Age At Onset Mother Problem (finding) asthma Mother Problem (finding) Alive and well Father Problem (finding) Alive and well Payers Payer name Insurance type Covered republican ID Authoriza tifrancesco(s) Medicaid [facility] [id number] Social History Type Description Quantity Date Captured [...] Lab Order Group B Beta Strep Screen ([id number]), Ordered on: Ordered Future Order: Lab Order Ct/Ng, C lient Prequot, RICARDO ([id number]), Ordered on: Ordered Future Order: Lab Order RPR ([id number]), O rdered on: Ordered Future Order: Lab Order HIV Ab ( [id number]), Ordered on: Ordered Future Order: Lab Order CBC ([id number]), O rdered on: Ordered Future Order: Lab Order Ct, Ng, Trich vag by RICARDO ([id number]), Ordered on: Ordered Future Order: Lab Order GestWayne ramon 1-hr Screen ([id number]), Ordered on: Ordered Future Order: Lab Order CBC ([id number]), O rdered on: Ordered Future Order: Lab Order Chlamydi a/GC, DNA Probe w/Rflx ([id number]), Sent on: Sent History Of Present Illness [...] Mental Status Date Cognitive Assessment Orientation - Excel ed to time, place, person, situation.
== END 2025-02-02 08:32 | disposition home or self-care (01) ==
LOC: HO.HOSX 08:31
DX: M79.642 Pain in left hand (principal); R93.6 Abnormal findings on diagnostic imaging of limbs
CPT/HCPCS: 73130; 99212

== ENCOUNTER 2025-02-02 09:05 | Outpatient (AMB) | payer MEDICAID, SELFPAY ==
[2025-02-02 09:09] VITALS: BMI 20.4
--- NOTE | 2025-02-02 09:09 | A.OFFVIS_ITS ---
Vital Signs 02/02/25 09:09 Height 5 ft 4 in Weight 119 lb BMI 20.4 Intake Visit Reasons: New prob- LT thumb pain Intake Note: Gavi is a 29 year old right hand dominant citizen of [place] speaking female who presents today for a new problem visit for her left thumb pain. States pain started about 1 month, no injury she can recall. States she is having swelling, pain is on her IP to MP, she is not able to open any water bottles , weakness and has a burning sensation. She is limited ROM, and her hand gets shaky if she bend her thumb too much. Dredge Pumper Name: MonroeNAOMY castro/LORNE Allergies No Known Allergies Allergy (Verified 02/02/25 09:16) HPI HPI New prob- LT thumb pain: Details: Gavi is a 29 year old right hand dominant citizen of [place] speaking female who presents today for a new problem visit for her left thumb pain. States pain started about 1 month, no injury she can recall. States she is having swelling, pain is on her IP to MP, she is not able to open any water bottles , weakness and has a burning sensation. She is limited ROM, and her hand gets shaky if she bend her thumb too much. [facility] Medical History Asthma delivery delivered Surgical History Hx of elbow surgery Social History Alcohol intake: never Patient Tobacco Use Status: Never used Tobacco Tobacco use type: Cigarette Cigarettes Per Day: 3 Years Smoked: 2 years Substance Use Type: Marijuana Current occupational status: unemployed Current occupation: right hand dominant Review of Systems Const All systems reviewed & are unremarkable except as noted in HPI and below Physical Exam Vital Signs: BMI result Body Mass Index 20.4 Extrem Other: Patient is alert, oriented, and in no acute distress. Neuro: Normal sensation of the tips of all digits of the left hand at this time Vascular: Cap refill brisk Pain: Slight tenderness to palpation about the MCP joint of the left hand Discomfort along the radial aspect of the MCP joint of the left thumb with varus and valgus testing Negative Nicole in the left No tenderness to palpation of the left radial styloid, ulnar styloid, DRUJ, or elsewhere in the left hand or wrist ROM: Patient was able to make a closed fist and extend all digits of the left hand fully, but reports some discomfort in the left thumb when doing so No ligamentous laxity noted with varus and valgus testing of the MCP joint of the left thumb, Good endpoints Skin: No lacerations or abrasions. General: No ecchymosis, erythema, or evidence of infection. Psych: Appears grossly normal Affect normal Attitude cooperative Results Reviewed Results Reviewed: X-rays obtained in the office today and independently reviewed by me, Nacho Hendrix PA-C, demonstrate no fracture or acute bony abnormality of the left hand. Assessment & Plan Assessment & Plan (1) Pain in thumb joint with movement of left hand: Code(s): M25.542 - Pain in joints of left hand Category: Medical (2) Stiffness of left hand joint: Code(s): M25.642 - Stiffness of left hand, not elsewhere classified Category: Medical Plan 1. Pain and stiffness of left thumb Patient is educated about this condition Patient is educated about the typical treatment course At this time, patient was informed that there is no acute surgical or operative intervention indicated at this time Patient was referred to occupational therapy for range of motion and stre ngthening of the left hand and wrist, particularly of the left thumb Patient was amenable to this plan Follow-up as needed with any acute concerns Orders: Orders XR hand LT min 3V Today M79.642 - Pain in left hand OT Evaluation and Treatment Today M25.542 - Pain in joints of left hand, M25.642 - Stiffness of left hand, not elsewhere classified Coding Level of Care Code New Pt Level 3 (71642) Diagnoses Pain in thumb joint with movement of left hand M25.542 Stiffness of left hand joint M25.642
--- OUTSIDE RECORDS SUMMARY | 2025-02-02 09:59 | XMS_ITS | Continuity of Care Document ---
Author Organization [facility] Address [address] [place] [address] Phone Care Team Providers Care Orthopedic Cast Specialist Name Role Phone Celina Cisneros APN Unavailable Unavailable Medications Medication Instructions Dosage Effective Dates (start - stop) Status Comments valacyclovir 1 g tablet take 1 tablet (1000MG) by oral route every day 1000 MG - Active Plus 27 mg-1 mg Tab take 1 tablet by oral route every day - Active Procedures Procedure Date Office/outpatient visit,[facility] 2015 Advance Directives Directive Yes / No Effective Date File Name No Information Encounters Encounter Description Practice Location Reason(s) For Visit Diagnoses Date Provider Office/outpati ent visit,[facility], [address] [place] [address], tel:[phone] [facility] f/u to 06/03 ER Visit (chief complaint) Nausea and vomiting in prior to 22 weeks gestationLess than 8 weeks gestation of Blayne Patrikc. [address] [place] [address], [id number] [place] [address]. [facility], [address] [place] [address] tel:[phone] [facility] OB SURG COMP NEC-POSTPAR Noah Cavanaugh. [address] [place] [address], [id number] [address] [place] [address]. [facility], [address] [place] [address], tel:[phone] [facility] No Information Franck Kirk Ylbe. [address], [place], [place], [facility], . [facility], [address] [place] [address], [facility], tel:[phone] [facility] No Information Brianna Starks. [address], [id number] [address], [place], [facility], . [facility], [address] [place] [address], [facility], tel:[phone] [facility] No Information Verónica Carreno. [address], [place], [place], [facility], . [address] tel:[phone] [facility] No Information Noah Cavanaugh. [address], [id number] [address] [place] [address], [facility], . [address], [facility], tel:[phone] [facility] PN visit (chief complaint) No Information Laureano Roland. [address] [place] [address], [id number] [address] [place] [address], [facility], . tel:[phone], [facility], tel:[phone] [facility] No Information Noah Cavanaugh. [address], [id number] [address] [place] [address], [facility], . [address], [facility], tel:[phone] [facility] No Information Franck Kirk Ylbe. [address], [place], [place], [facility], . [facility], [address] [place] [address] tel:[phone] [facility] No Information Franck Kirk Ylbe. [address] [facility], [place], [place], [address] [place] [address]. [facility], [address] [place] [address] tel:[phone] [facility] care (chief complaint) No Information Noah Cavanaugh. [address] [facility], [id number] [address] [place] [address]. [facility], [address] [place] [address] tel:[phone] [facility] care (chief complaint) No Information Franck Kirk Ylbe. [facility] [address] [facility], [address] [facility], [address] [place] [address] tel:[phone] [facility] No Information Blayne Patrick. [address] [place] [address], [address] [place] [address]. [facility], [address] [place] [address] tel:[phone] [facility] No Information Blayne Patrick. [address] [place] [address], [address] [place] [address]. [facility], [address] [place] [address] tel:[phone] [facility] OBGYAbel PN visit (chief complaint) SUPERVIS OTH NORMAL PREG Laureano Roland. [address] [place] [address], [id number] [address] [place] [address]. tel:[phone] [facility], [address] [place] [address] tel:[phone] [facility]ind[facility] OBGYN SUPERVIS NORMAL 1ST PREG [facility]. [address] [facility], [id number] [address] [place] [address], [address], [place]. tel:[phone] [facility], [address] [place], [place], [facility], tel:[phone] [facility] OBGYN OB psychosocial intake (chief complaint) OBSERV-MENTAL COND NEC Susan Ordaz. [address], [id number] [address] [place] [address], [address], [place]. Family History Family Member Type Diagnosis Age At Onset Mother Problem (finding) asthma Mother Problem (finding) Alive and well Father Problem (finding) Alive and well Payers Payer name Insurance type Covered alliance party ID Authoriza tifrancesco(s) Medicaid [facility] [id number] Social History Type Description Quantity Date Captured [...] Lab Order Group B Beta Strep Screen ([id number]), Ordered on: Ordered Future Order: Lab Order Ct/Ng, C lient Prequot, RICARDO ([id number]), Ordered on: Ordered Future Order: Lab Order RPR ([id number]), O rdered on: Ordered Future Order: Lab Order HIV Ab ( [id number]), Ordered on: Ordered Future Order: Lab Order CBC ([id number]), O rdered on: Ordered Future Order: Lab Order Ct, Ng, Trich vag by RICARDO ([id number]), Ordered on: Ordered Future Order: Lab Order GestWayne ramon 1-hr Screen ([id number]), Ordered on: Ordered Future Order: Lab Order CBC ([id number]), O rdered on: Ordered Future Order: Lab Order Chlamydi a/GC, DNA Probe w/Rflx ([id number]), Sent on: Sent History Of Present Illness [...] Mental Status Date Cognitive Assessment Orientation - Converse ed to time, place, person, situation.
--- OUTSIDE RECORDS SUMMARY | 2025-02-02 09:59 | XMS_ITS | Clinical Summary ---
Author Organization [facility] Address [address] [facility] 7t [place] [address] Care Team Providers Care Rivet Hole Puncher Name Role Phone Unavailable Primary Care Provider Unavailabl e Allergies No known active allergies Medications albuterol 108 (90 Base) MCG/ACT inhalerIndicatio ns:Cough, unspecified type Inhale 2 puffs every 6 (six) hours if needed for wheezing. 18 g 1 08/13/2024 Active Encounters Date Type Department Care Team Description 01/02/2025 Population Health Risk Score [facility] (C[facility]) Department [address] [id number] Provider, Population Health Generic from [...] patient's age to complete this topic Insurance [employer] C3
== END 2025-02-02 09:38 | disposition home or self-care (01) ==
LOC: HO.HOS 09:06
DX: M25.542 Pain in joints of left hand (principal); M25.642 Stiffness of left hand, not elsewhere classified
CPT/HCPCS: 99213

== ENCOUNTER → 2025-02-02 09:07 | Outpatient (BNV) | payer MEDICAID, SELFPAY | PROVIDERS: Visit Provider Radiology Diagnostic Radiology | DX: M79.642 Pain in left hand (principal) | CPT/HCPCS: 73130 ==

== ENCOUNTER 2025-03-24 09:58 | Outpatient (RCR) | payer OTHER, SELFPAY ==
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
== END 2025-09-08 08:25 | disposition home or self-care (01) ==
LOC: HO.OT 09:58
PROVIDERS: PCP Internal Medicine
DX: M25.642 Stiffness of left hand, not elsewhere classified (principal); M25.542 Pain in joints of left hand
CPT/HCPCS: 97035; 97110; 97140; 97165

== ENCOUNTER 2025-06-30 15:01 | Outpatient (AMB) | payer OTHER, SELFPAY ==
--- OUTSIDE RECORDS SUMMARY | 2016-06-06 09:50 | XMS_ITS | Continuity of Care Document ---
Author Organization [facility] Address [address] [place] [address] Phone Care Team Providers Care Doorkeeper Name Role Phone Celina Cisneros APN Unavailable Unavailable Medications Medication Instructions Dosage Effective Dates (start - stop) Status Comments valacyclovir 1 g tablet take 1 tablet (1000MG) by oral route every day 1000 MG - Active Plus 27 mg-1 mg Tab take 1 tablet by oral route every day - Active Procedures Procedure Date Office/outpatient visit,[facility] 2015 Advance Directives Directive Yes / No Effective Date File Name No Information Encounters Encounter Description Practice Location Reason(s) For Visit Diagnoses Date Provider Office/outpati ent visit,[facility], [address] [place] [address], tel:[phone] [facility] f/u to 06/03 ER Visit (chief complaint) Nausea and vomiting in prior to 22 weeks gestationLess than 8 weeks gestation of Blayne Patrick. [address] [place] [address], [id number] [place] [address]. [facility], [address] [place] [address] tel:[phone] [facility] OB SURG COMP NEC-POSTPAR Noah Cavanaugh. [address] [place] [address], [id number] [address] [place] [address]. [facility], [address] [place] [address], tel:[phone] [facility] No Information Franck Kirk Ylbe. [address], [place], [place], [facility], . [facility], [address] [place] [address], [facility], tel:[phone] [facility] No Information Brianna Starks. [address], [id number] [place], [facility], . [facility], [address] [place] [address], [facility], tel:[phone] [facility] No Information Verónica Carreno. [address], [place], [place], [facility], . [address] tel:[phone] [facility] No Information Noah Cavanaugh. [address], [id number] [address] [place] [address], [facility], . [address], [facility], tel:[phone] [facility] PN visit (chief complaint) No Information Laureano Roland. [address] [place] [address], [id number] [address] [place] [address], [facility], . tel:[phone], [facility], tel:[phone] [facility] No Information Noah Cavanaugh. [address], [id number] [address] [place] [address], [facility], . [address], [facility], tel:[phone] [facility] No Information Franck Kirk Ylbe. [address], [place], [place], [facility], . [facility], [address] [place] [address] tel:[phone] [facility] No Information Franck Kirk Ylbe. [address] [facility], [place], [place], [address] [place] [address]. [facility], [address] [place] [address] tel:[phone] [facility] care (chief complaint) No Information Noah Cavanaugh. [address] [facility], [id number] [address] [place] [address]. [facility], [address] [place] [address] tel:[phone] [facility] care (chief complaint) No Information Franck Kirk Ylbe. [facility], [address] [facility], [address] [place] [address] tel:[phone] [facility] No Information Blayne Patrick. [address] [place] [address], [address] [place] [address]. [facility], [address] [place] [address] tel:[phone] [facility] No Information Blayne Patrick. [address] [place] [address], [address] [place] [address]. [facility], [address] [place] [address] tel:[phone] [facility] OBGYAbel PN visit (chief complaint) SUPERVIS OTH NORMAL PREG Laureano Roladn. [address] [place] [address], [id number] [address] [place] [address]. tel:[phone] [facility], [address] [place] [address] tel:[phone] [facility] SUPERVIS NORMAL 1ST PREG Nursing Nursing. [address] [facility], [id number] [address] [place] [address], [address], [place]. tel:[phone] [facility], [address] [place], [place], [facility], tel:[phone] [facility] OB psychosocial intake (chief complaint) OBSERV-MENTAL COND NEC Susan Ordaz. [address], [id number] [address] [place] [address], [address], [place]. Family History Family Member Type Diagnosis Age At Onset Mother Problem (finding) asthma Mother Problem (finding) Alive and well Father Problem (finding) Alive and well Payers Payer name Insurance type Covered democrat ID Authoriza tifrancesco(s) Medicaid [facility] [id number] Social History Type Description Quantity Date Captured [...] Lab Order Group B Beta Strep Screen ([id number]), Ordered on: Ordered Future Order: Lab Order Ct/Ng, C lient Prequot, RICARDO ([id number]), Ordered on: Ordered Future Order: Lab Order RPR ([id number]), O rdered on: Ordered Future Order: Lab Order HIV Ab ( [id number]), Ordered on: Ordered Future Order: Lab Order CBC ([id number]), O rdered on: Ordered Future Order: Lab Order Ct, Ng, Trich vag by RICARDO ([id number]), Ordered on: Ordered Future Order: Lab Order GestWayne ramon 1-hr Screen ([id number]), Ordered on: Ordered Future Order: Lab Order CBC ([id number]), O rdered on: Ordered Future Order: Lab Order Chlamydi a/GC, DNA Probe w/Rflx ([id number]), Sent on: Sent History Of Present Illness [...] Mental Status Date Cognitive Assessment Orientation - [place] ed to time, place, person, situation.
[2025-06-30 15:39] VITALS: BMI 20.4
--- NOTE | 2025-06-30 15:39 | A.OFFVIS_ITS ---
Vital Signs 06/30/25 15:39 Height 5 ft 4 in Weight 119 lb BMI 20.4 Intake Visit Reasons: OV-Left hand pain-limited ROM Intake Note: Gavi is a 29 year old right hand dominant female who presents today for follow up of her Left Thumb Pain. On 02/02/25 she was referred to Occupational Therapy for ROM and strengthening. Patient reports she did not feel any relief. She feel s like her shoulder pain has worsened, causing pain with ROM. She is having some bruising on the palm of her left hand that started after she began Occupational Therapy. She has noticed swelling of the hand every morning. She also reports numbness and tingling all around the volar aspect of the hand. Patient status post Left Ulna ORIF, 09/06/[address] Enriquez, status post Left Elbow KINGSLEY, 01/23/[address] Enriquez. Senior Director Creative Services Required: Yes Senior Director Creative Services Language: Family Preservation Officer Services: Senior Director Creative Services Present Senior Director Creative Services Name: JeanNAOMY/LORNE Allergies No Known Allergies Allergy (Verified 06/30/25 15:48) HPI HPI OV-Left hand pain-limited ROM: Details: Gavi is a 29 year old right hand dominant female who presents today for follow up of her Left Thumb Pain. On 02/02/25 she was referred to Occupational Therapy for ROM and strengthening. Patient reports she did not feel any relief. She feels like her shoulder pain has worsened, causing pain with ROM. She is having some bruising on the palm of her left hand that started after she began Occupational Therapy. She has noticed swelling of the hand every morning. She also reports numbness and tingling all around the volar aspect of the hand. Patient status post Left Ulna ORIF, 09/06/[address] Enriquez, status post Left Elbow KINGSLEY, 01/23/[address] Enriquez. [facility] Medical History Asthma delivery delivered Surgical History Hx of elbow surgery Social History Alcohol intake: never Patient Tobacco Use Status: Never used Tobacco Tobacco use type: Cigarette Cigarettes Per Day: 3 Years Smoked: 2 years Substance Use Type: Marijuana Current occupational status: unemployed Current occupation: right hand dominant Review of Systems Const All systems reviewed & are unremarkable except as noted in HPI and below Physical Exam Vital Signs: BMI result Body Mass Index 20.4 Extrem Other: Patient is alert, oriented, and in no acute distress. Neuro: Normal sensation of the tips of all digits of the left hand at this time Vascular: Cap refill brisk Pain: Slight tenderness to palpation about the MCP joint of the left hand Discomfort along the radial aspect of the MCP joint of the left thumb with varus and valgus testing Negative Nicole in the left No tenderness to palpation of the left radial styloid, ulnar styloid, DRUJ, or elsewhere in the left hand or wrist ROM: Patient was able to make a closed fist and extend all digits of the left hand fully, but reports some discomfort in the left thumb when doing so No ligamentous laxity noted with varus and valgus testing of the MCP joint of the left thumb, Good endpoints Skin: No lacerations or abrasions. General: Small, almost punctate area of ecchymosis noted on the palmar aspect of the left hand over the 3rd metacarpal Psych: Appears grossly normal Affect normal Attitude cooperative Assessment & Plan Assessment & Plan (1) Stiffness of left hand joint: Code(s): M25.642 - Stiffness of left hand, not elsewhere classified Category: Medical (2) Numbness and tingling of left hand: Code(s): R20.0 - Anesthesia of skin; R20.2 - Paresthesia of skin Category: Medical Plan 1. Numbness, tingling, pain of the left hand Symptoms intermittent, daily, worse at night Patient is educated about this condition Patient is educated about the typical diagnostic and treatment course At this time, patient is referred for EMG and nerve conduction study for a ssessment of the health of the nerves of the left upper extremity Patient will follow-up after EMG and nerve conduction study for results review and discussion of further treatment options if indicated Patient understands this is amenable to this plan Follow-up after EMG Orders: Orders NE electromyogram (EMG) 06/30/25 R20.0 - Anesthesia of skin, R20.2 - Paresthesia of skin NE nerve conduction velocity 06/30/25 R20.0 - Anesthesia of skin, R20.2 - Paresthesia of skin Coding Level of Care Code Est Pt Level 3 (41248) Diagnoses Stiffness of left hand joint M25.642 Numbness and tingling of left hand R20.0; R20.2
--- OUTSIDE RECORDS SUMMARY | 2025-06-30 17:27 | XMS_ITS | Clinical Summary ---
Author Organization [facility] Address [address] [facility] 7[address] [place] [address] Care Team Providers Care Welder Gas Tungsten Arc Name Role Phone Unavailable Primary Care Provider [...] 95 08/13/2024 5:55 PM EDT Temperature 38.9 C (102 F) 08/13/2024 6:52 PM EDT Respiratory Rate 20 [...] 1995 Lipid Panel 1995 SDOH Screening 1995 Disability Screening 1995 Alcohol/Substance Use Screening 2007 Family Planning (PISQ) 2010 HPV Vaccines (1 - 3-dose series) 2010 Hepatitis C Screening 2013 DTaP/Tdap/Td Vaccines (1 - Tdap) 2014 Hepatitis B Vaccines (1 of 3 - 19+ 3-dose series) 2014 Pneumococcal Vaccine: Pediat rics (0 to 5 Years) and At-Risk Patients (6 to 49) Years (1 of 2 - PCV) 2014 Pap Smear 2016 COVID-19 Vaccine (1 - 2023-2 5 season) 2025 Influenza Vaccine (#1) 2025 Tobacco Screening 08/13/2025 08/13/2024 Zoster Vaccines (1 [...] patient's age to complete this topic Meningococcal B Vaccine Aged Out No l onger eligible based on patient's age to complete this topic Meningococcal Vaccine Aged Out No karena scott eligible based on patient's age to complete this topic RSV under 20 months Aged Out No longe r eligible based on patient's age to complete this topic Rotavirus Vaccines Aged Out No longer eligible based on patient's age to complete this topic [facility]
== END 2025-06-30 16:14 | disposition home or self-care (01) ==
LOC: HO.HOS 15:01
PROVIDERS: PCP Internal Medicine
DX: M25.642 Stiffness of left hand, not elsewhere classified (principal); R20.0 Anesthesia of skin; R20.2 Paresthesia of skin
CPT/HCPCS: 99213

== ENCOUNTER → 2025-06-30 15:01 | Outpatient (BNVA) | payer OTHER, SELFPAY | PROVIDERS: PCP Internal Medicine | DX: M25.642 Stiffness of left hand, not elsewhere classified (principal); R20.0 Anesthesia of skin; R20.2 Paresthesia of skin | CPT/HCPCS: 99212 ==

== ENCOUNTER 2025-07-14 19:31 | Emergency (ER) | payer OTHER, SELFPAY ==
[2025-07-14 19:42] VITALS: BP 115/66; PULSE 83; RESP 15; TEMP 36.4; O2SAT 98; BMI 20.2
--- NOTE | 2025-07-14 19:48 | ED_ITS ---
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 Sadia Gutierrez HPI narrative: 29-year-old female with no significant past medical history presenting with left nipple pain and swelling ongoing for the last 7 days or so. Admits that she has nipple piercings bilaterally and has never had an issue with these. She got them about 5 years ago. Reports changing her nipple ring and then developing pain and discharge. The discharge stopped but the pain and swelling continued. She removed the piercing but continues to have pain. No reported fever. No other skin changes. No underlying breast pain. Had been feeling well prior to this. No trauma to the area. The Related Data Home Medications ?Medication ?Instructions ?Recorded ?Confirmed ibuprofen 800 mg tablet 800 mg PO Q6H 11/28/22 Previous Rx's ?Medication ?Instructions ?Recorded albuterol sulfate 90 mcg/actuation 2 puff inhalation Q 4-6H PRN 07/29/22 aerosol inhaler shortness of breath or wheez ing #8.5 grams ondansetron 4 mg disintegrating 4 mg PO Q8H PRN nausea and 08/14/24 tablet vomiting 5 days #14 tabs ibuprofen 600 mg tablet 600 mg PO TID PRN fever or p ain 11/04/24 #20 tabs albuterol sulfate 90 mcg/actuation 2 puff inhalation Q 6H PRN 11/28/24 aerosol inhaler shortness of breath or wheez ing #8.5 grams prednisone 20 mg tablet 40 mg (2 x 20 mg) PO DAILY # 10 tabs 11/28/24 cephalexin 500 mg capsule 500 mg PO QID 7 days #28 cap s 07/15/25 Allergies Allergy/AdvReac Type Severity Reaction Status Date / Time No Known Allergies Allergy Verified 07/14/25 19:49 Review of Systems Review of Systems: as per HPI, full review of systems performed and negative but for the above mentioned pertinent positives and negatives. [facility] Past Medical History Medical History Asthma delivery delivered Surgical History Hx of elbow surgery Social History Social History Alcohol intake: never Patient Tobacco Use Status: Never used Tobacco Tobacco use type: Cigarette Cigarettes Per Day: 3 Years Smoked: 2 years Smoked in Last 30 Days: Yes Use of substances other than those prescribed or required for medical reasons: Yes Substance Use Type: Marijuana Advance Directives: No Do you have a plan to hurt others: No Plan Current occupational status: unemployed Current occupation: right hand dominant Physical Exam ED Exam Exam: GENERAL: Well-Appearing, conversant, no acute distress. SKIN: Normal skin color for ethnicity, no rashes noted. HEENT: Normocephalic, atraumatic, no stridor, EOMI. CHEST: Heart regular rate and rhythm, no murmurs, symmetric chest rise and fall, left areola is tender to palpation, no significant swelling or ehythema appreciable on exam, no drainage, no lesions, no rash. PULMONARY: Clear to auscultation bilaterally, no labored breathing, no wheezes/rhales/rhonchi. ABDOMINAL: Soft, nondistended, nontender, positive bowel sounds in all quadrants. MUSCULOSKELETAL: Normal tone, full range of motion, no deformities, no peripheral edema. NEURO: Alert and oriented x3, CN II through XII intact, equal strength and sensation bilateral upper and lower extremities, no focal neurologic deficits. PSYCHIATRIC: Normal affect, fluid speech, good eye contact and appropriate demeanor. Vital Signs: Vital Signs - 24 hr 07/14/25 19:42 07/14/25 23:02 Temperature 97.5 F 98.1 F Pulse Rate 83 81 Respiratory Rate 15 20 Blood Pressure 115/66 106/67 Pulse Oximetry 98 100 Oxygen Delivery Method Room Air Room Air BMI result Body Mass Index 20.2 Course Course Course Narrative: This is a Rapid Medical Examination (RME) performed by Saulo Lobato PA-C in triage. Full HPI, ROS, assessment and treatment plan per primary provider in the Main ED. Hx: 29 yo F here for eval of left nipple pain/swelling/discharge x1 week. reports piercing to nipple x5 years, recently removed the piercing. PE/vitals: area not evaled in triage d/t privacy. Plan: further eval in back. Medications Administered Discontinued Medications Generic Name Dose Route Start Last Admin Trade Name Freq PRN Reason Stop Dose Admin Cephalexin HCl 500 mg 07/14/25 23:55 07/15/25 00:07 Cephalexin 500 Mg Capsule PO 07/14/25 23:56 500 mg ONCE ONE Administration Ibuprofen 600 mg 07/14/25 23:55 07/15/25 00:06 Ibuprofen 600 Mg Tablet PO 07/14/25 23:56 600 mg ONCE ONE Administration Lidocaine HCl 1 appl 07/14/25 23:55 07/15/25 00:07 Lidocaine 4 % Cream Kit TOPICAL 07/14/25 23:56 1 appl ONCE ONE Administration Protocol Medical Decision Making Medical Decision Making MDM Narrative: Patient presents today with chief complaint of possible infected nipple. Differential diagnosis includes abscess, cellulitis, deep space infection such as fasciitis, vascular abnormality, among many others. Findings are not consistent with fasciitis specifically with no crepitus, blistering of the skin, pain out of proportion, hemodynamic instability, poor historical factors. Based on physical examination, most consistent with early cellulitis. Abx provided. Return precautions discussed. Differential Diagnosis Differential Diagnoses: The differential diagnosis associated with the presentation includes (as above) Admission/Observation Consideration of admission/observation: Escalation of care including admission/ observation considered Independent Historian Clinical information obtained from an independent historian. History obtained from or confirmed by: Friend Prescription Management I considered prescription management with: Pain Medication and Antibiotic Social Determinants Patient?s care significantly limited by Social Determinants of Health including: Other Social Determinant of Health Discharge Plan Discharge Clinical Impression: Cellulitis of left breast Patient Disposition: Home, Self-Care Instructions: Cellulitis (ED) Additional Instructions: Take your antibiotic as prescribed until the course is completed. Do not stop this medication early when you start to feel better. Return to the ER if you notice redness tracking up into her armpit, worsening pain or if you develop a fever. Follow up with your primary care doctor as needed. Prescriptions: New cephalexin 500 mg capsule 500 mg PO QID 7 Days Qty: 28 0RF No Action albuterol sulfate 90 mcg/actuation HFA aerosol inhaler 2 puff inhalation Q4-6H PRN (Reason: shortness of breath or wheezing) Qty: 8.5 1RF ondansetron 4 mg tablet,disintegrating 4 mg PO Q8H PRN (Reason: nausea and vomiting) 5 Days Qty: 14 0RF ibuprofen 600 mg tablet 600 mg PO TID PRN (Reason: fever or pain) Qty: 20 0RF prednisone 20 mg tablet 40 mg PO DAILY Qty: 10 0RF albuterol sulfate 90 mcg/actuation HFA aerosol inhaler 2 puff inhalation Q6H PRN (Reason: shortness of breath or wheezing) Qty: 8.5 0RF ibuprofen 800 mg tablet 800 mg PO Q6H Interventions: ED Discharge Assessment Last Done: 07/15/25 00:13 Discharge Date/Time: 07/15/25 00:14 Print Language: Bulgarian
[2025-07-14 23:02] VITALS: BP 106/67; PULSE 81; RESP 20; TEMP 36.7; O2SAT 100
--- OUTSIDE RECORDS SUMMARY | 2025-07-14 23:20 | XMS_ITS | Clinical Summary ---
Author Organization [employer] Address [address] [facility] 7t [place] [address] Care Team Providers Care Customer Engineer Name Role Phone Unavailable Primary Care Provider [...] patient's age to complete this topic Insurance [facility]
[2025-07-15] MEDS: Lidocaine 4 % Cream KIT 1 APPL TOPICAL (00:07)
[2025-07-15 00:13] VITALS: BP 106/67; PULSE 81; RESP 20; TEMP 36.7; O2SAT 100
== END 2025-07-15 00:14 | disposition home or self-care (01) ==
PROVIDERS: Emergency Provider Emergency Medicine; PCP Internal Medicine
DX: N61.0 Mastitis without abscess (principal); R10.2 Pelvic and perineal pain; N64.4 Mastodynia
CPT/HCPCS: 99283; 99284

== ENCOUNTER 2025-08-20 08:24 | Outpatient (REF) | payer OTHER, SELFPAY ==
--- OUTSIDE RECORDS SUMMARY | 2016-06-06 09:50 | XMS_ITS | Continuity of Care Document ---
Author Organization [facility] Address [address] [place] [address] Phone Care Team Providers Care Chair Maker Name Role Phone Celina Cisneros APN Unavailable Unavailable Medications Medication Instructions Dosage Effective Dates (start - stop) Status Comments valacyclovir 1 g tablet take 1 tablet (1000MG) by oral route every day 1000 MG - Active Plus 27 mg-1 mg Tab take 1 tablet by oral route every day - Active Procedures Procedure Date Office/outpatient visit,[facility] 2015 Advance Directives Directive Yes / No Effective Date File Name No Information Encounters Encounter Description Practice Location Reason(s) For Visit Diagnoses Date Provider Office/outpati ent visit,[facility], [address] [place] [address], tel:[phone] [facility] f/u to 06/03 ER Visit (chief complaint) Nausea and vomiting in prior to 22 weeks gestationLess than 8 weeks gestation of Blayne Patrick. [address] [place] [address], [id number] [place] [address]. [facility], [address] [place] [address] tel:[phone] [facility] OB SURG COMP NEC-POSTPAR Noah Cavanaugh. [address] [place] [address], [id number] [address] [place] [address]. [facility], [address] [place] [address] tel:[phone] [facility] No Information Franck Kirk Ylbe. [address], [place], [place], [facility], . [facility], [address] [place] [address], [facility], tel:[phone] [facility] No Information Brianna Starks. [address], [id number] [place], [facility], . [facility], [address] [place] [address], [facility], tel:[phone] [facility] No Information Verónica Carreno. [address], [place], [place], [facility], . [address] tel:[phone] [facility] No Information Noah Cavanaugh. [address], [id number] [address] [place] [address], [facility], . [address], [facility], tel:[phone] [facility] PN visit (chief complaint) No Information Laureano Roland. [address] [place] [address], [id number] [address] [place] [address], [facility], . tel:[phone], [facility], tel:[phone] [facility] No Information Noah Cavanaugh. [address], [id number] [address] [place] [address], [facility], . [address], [facility], tel:[phone] [facility] No Information Franck Kirk Ylbe. [address], [place], [place], [facility], . [facility], [address] [place] [address] tel:[phone] [facility] No Information Franck Kirk Ylbe. [address] [facility], [place], [place], [address] [place] [address]. [facility], [address] [place] [address] tel:[phone] [facility] care (chief complaint) No Information Noah Cavanaugh. [address] [facility], [id number] [address] [place] [address]. [facility], [address] [place] [address] tel:[phone] [facility] care (chief complaint) No Information Franck Kirk Ylbe. [facility] S [facility], [address] [facility], [address] [place] [address] tel:[phone] [facility] No Information Blayne Patrick. [address] [place] [address], [address] [place] [address]. [facility], [address] [place] [address] tel:[phone] [facility] No Information Blayne Patrick. [address] [place] [address], [address] [place] [address]. [facility], [address] [place] [address] tel:[phone] [facility] OBGY[facility] PN visit (chief complaint) SUPERVIS OTH NORMAL PREG Laureano Roland. [address] [place] [address], [id number] [address] [place] [address]. tel:[phone] [facility], [address] [place] [address] tel:[phone] [facility] OBGYN SUPERVIS NORMAL 1ST PREG Nursing Nursing. [address] [facility], [id number] [address] [place] [address], [address], [place]. tel:[phone] [facility], [address] [place], [place], [facility], tel:[phone] [facility] OB psychosocial intake (chief complaint) OBSERV-MENTAL COND NEC Susan Ordaz. [address], [id number] [address] [place] [address], [address], [place]. Family History Family Member Type Diagnosis Age At Onset Mother Problem (finding) asthma Mother Problem (finding) Alive and well Father Problem (finding) Alive and well Payers Payer name Insurance type Covered constitution party ID Authoriza tifrancesco(s) Medicaid [facility] [id number] Social History Type Description Quantity Date Captured [...] Lab Order Group B Beta Strep Screen ([id number]), Ordered on: Ordered Future Order: Lab Order Ct/Ng, C lient Prequot, RICARDO ([id number]), Ordered on: Ordered Future Order: Lab Order RPR ([id number]), O rdered on: Ordered Future Order: Lab Order HIV Ab ( [id number]), Ordered on: Ordered Future Order: Lab Order CBC ([id number]), O rdered on: Ordered Future Order: Lab Order Ct, Ng, Trich vag by RICARDO ([id number]), Ordered on: Ordered Future Order: Lab Order GestWayne ramon 1-hr Screen ([id number]), Ordered on: Ordered Future Order: Lab Order CBC ([id number]), O rdered on: Ordered Future Order: Lab Order Chlamydi a/GC, DNA Probe w/Rflx ([id number]), Sent on: Sent History Of Present Illness [...] Mental Status Date Cognitive Assessment Orientation - [place] ed to time, place, person, situation.
--- NOTE | ~2025-08-20 | XR_ITS ---
EXAMINATION: XR ELBOW 3 VIEWS LEFT HISTORY: M25.529 - Pain in unspecified elbow COMPARISON: Comparison is made with the prior examination dated 01/29/2023. FINDINGS: Three views of the left elbow are submitted. Osseous mineralization is normal. There is no fracture or dislocation. The joint spaces are preserved. There are tiny metallic densities in the soft tissues. There is no joint effusion. XR/XR elbow LT min 3V IMPRESSION: No osseous abnormality is identified. Electronically signed by: Horaico Lua MD 08/20/2025 02:49 PM EDT
--- OUTSIDE RECORDS SUMMARY | 2025-08-21 08:37 | XMS_ITS | Encounter Summary ---
Author Organization [employer] Address [address] [facility] 7t [place] [address] Care Team Providers Care Admissions Coordinator Name Role Phone Casie Shaffer MD Primary Care Provider + Reason for Visit * Reason Onset Date Comments scheduling 08/17/2025 Encounter Details Date Type Department Care Team (Late st Contact Info) Description 08/17/2025 Telephone [facility] [address] [place] [address] Casie Shaffer MD [address] [place] [address] scheduling Social History Tobacco Use Types Packs/Day [...] on filedocumented in this encounter Care Teams Admissions Coordinator Relationship Specialty Start Date End Date Casie Shaffer MD [address] [place] [phone] PCP - General Internal Medicine 08/17/25 documented as of this encounter
--- OUTSIDE RECORDS SUMMARY | 2025-08-21 08:38 | XMS_ITS | Encounter Summary ---
Author Organization [facility] [employer] Address [address] [facility] 7t [place] [address] Care Team Providers Care Occupational Therapy Assist Name Role Phone Casie Aldana MD Primary Care Provider + Reason for Referral * Imaging (Routine) - Authorized Specialty Diagnoses / Procedures Referred By Contac t Referred To Contact Radiology Diagnoses Seroma of breast Procedures BI US Breast Limited Left Casie Aldana MD [address] [place] [address] Phone: tel: fax: [address] Phone: tel: fax: Referral ID Status Reason Start Date Expiration Date V isits Requested Visits Authorized [id number] Authorized 08/20/2025 08/20/2026 1 1 Encounter Details Date Type Department Care Team ([facility] Contact Info) Description 08/20/2025 Telephone [facility] [address] [place] [phone] Casie Aldana MD [address] [place] [address] [phone] Social History Tobacco Use Types Packs/Day Years [...] - 08/20/2025 10:06 AM EDT Joellen at [facility] is requesting Us Breast order to be [...] Primary documented in this encounter Care Teams Occupational Therapy Assist Relationship Specialty Start Date End Date Casie Aldana MD [address] [place] [phone] PCP - General Internal Medicine 08/17/25 documented as of this encounter
--- OUTSIDE RECORDS SUMMARY | 2025-08-21 08:38 | XMS_ITS | Encounter Summary ---
Author Organization [employer] Address [address] [facility] [address] [place] [address] Care Team Providers Care Charge Histotechnologist Name Role Phone Casie Shaffer MD Primary Care Provider + Encounter Details Date Type Department Care Team (Late st Contact Info) Description 08/17/2025 Telephone [facility] [address] [place] [address] Ivan Trotter MD [address] [place] [address] Social History Tobacco Use Types Packs/Day Years [...] 4:45 PM EDT ----- Patient needs an QUALITY CONTROL MICROBIOLOGIST appointment within 1 month documented in this encounter Plan of Treatment Not on file documented as of this encounter Visit Diagnoses Not on filedocumented in this encounter Care Teams Charge Histotechnologist Relationship Specialty Start Date End Date Casie Shaffer MD [address] [place] [phone] PCP - General Internal Medicine 08/17/25 documented as of this encounter
--- OUTSIDE RECORDS SUMMARY | 2025-08-21 08:38 | XMS_ITS | Clinical Summary ---
Author Organization [employer] Address [address] [facility] [address] [place] [address] Care Team Providers Care Data Warehouse Administrator Name Role Phone Casie Shaffer MD Primary [...] Type Department Care Team Description 08/20/2025 Telephone [facility] [address] [place] [address] Casie Shaffer MD telephone call 08/20/2025 Telephone [place] [employer] [facility] [address] [place] [address] Casie Shaffer MD 08/17/2025 Telephone [facility] [address] [place], [place] [phone] Casie Shaffer MD scheduling 08/17/2025 Telephone [facility] [address] [place], [place] [phone] Ivan Trotter MD 08/14/2025 3:20 PM EDT Office Visit [facility] [address] [place] [address] Casie Shaffer MD Seroma of breast (Primary [...] patient's age to complete this topic [facility] Care Teams Data Warehouse Administrator Relationship Specialty Start Date End Date Casie Shaffer MD [address] [place] [phone] PCP - General Internal Medicine 08/17/25
--- OUTSIDE RECORDS SUMMARY | 2025-08-21 08:38 | XMS_ITS | Encounter Summary ---
Author Organization [employer] Address [address] [facility] [address] [place] [address] Care Team Providers Care Salvage Engineering Technician Name Role Phone Casie Shaffer MD Primary Care Provider + Reason for Visit * Reason Onset Date Comments telephone call 08/20/2025 Encounter Details Date Type Department Care Team (Late st Contact Info) Description 08/20/2025 Telephone [facility] [address] [place], [place] [phone] Casie Shaffer MD [address] [place] [address] telephone call Social History Tobacco Use Types [...] a viral infection. Best contact number is [phone] tajik speaking documented in this encounter Plan of Treatment Not on file documented as of this encounter Visit Diagnoses Not on filedocumented in this encounter Care Teams Salvage Engineering Technician Relationship Specialty Start Date End Date Casie Shaffer MD [address] [place] [phone] PCP - General Internal Medicine 08/17/25 documented as of this encounter
== END 2025-08-20 08:25 | disposition home or self-care (01) ==
LOC: HO.HOSX 08:24
PROVIDERS: Visit Provider Physician Assistant
DX: R20.0 Anesthesia of skin (principal); R20.2 Paresthesia of skin; M25.522 Pain in left elbow
CPT/HCPCS: 73080; 99212

== ENCOUNTER 2025-08-20 14:09 | Outpatient (AMB) | payer OTHER, SELFPAY ==
--- OUTSIDE RECORDS SUMMARY | 2016-06-06 09:50 | XMS_ITS | Continuity of Care Document ---
Author Organization [facility] Address [address] [place] [address] Phone Care Team Providers Care Hospital Nursing Assistant Name Role Phone Celina Cisneros APN Unavailable Unavailable Medications Medication Instructions Dosage Effective Dates (start - stop) Status Comments valacyclovir 1 g tablet take 1 tablet (1000MG) by oral route every day 1000 MG - Active Plus 27 mg-1 mg Tab take 1 tablet by oral route every day - Active Procedures Procedure Date Office/outpatient visit,[facility] 2015 Advance Directives Directive Yes / No Effective Date File Name No Information Encounters Encounter Description Practice Location Reason(s) For Visit Diagnoses Date Provider Office/outpati ent visit,[facility], [address] [place] [address], tel:[phone] [facility] f/u to 06/03 ER Visit (chief complaint) Nausea and vomiting in prior to 22 weeks gestationLess than 8 weeks gestation of Blayne Patrick. [address] [place] [address], [id number] [place] [address]. [facility], [address] [place] [address] tel:[phone] [facility] OB SURG COMP NEC-POSTPAR Noah Cavanaugh. [address] [place] [address], [id number] [address] [place] [address]. [facility], [address] [place] [address] tel:[phone] [facility] No Information Franck Kirk Ylbe. [address], [place], [place], [facility], . [facility], [address] [place] [address], [facility], tel:[phone] [facility] No Information Brianna Starks. [address], [id number] [place], [facility], . [facility], [address] [place] [address], [facility], tel:[phone] 00 [facility] No Information Verónica Carreno. [address], [place], [place], [facility], . [address] tel:[phone] 00 [facility] No Information Noah Cavanaugh. [address], [id number] [address] [place] [address], [facility], . [address], [facility], tel:[phone] [facility] PN visit (chief complaint) No Information Laureano Roland. [address] [place] [address], [id number] [address] [place] [address], [facility], . tel:[phone], [facility], tel:[phone] [facility] No Information Noah Cavanaugh. [address], [id number] [address] [place] [address], [facility], . [address], [facility], tel:[phone] [facility] No Information Franck Kirk Ylbe. [address], [place], [place], [facility], . [facility], [address] [place] [address] tel:[phone] [facility] No Information Franck Kirk Ylbe. [address] [facility], [place], [place], [address] [place] [address]. [facility], [address] [place] [address] tel:[phone] [facility] care (chief complaint) No Information Noah Cavanaugh. [address] [facility], [id number] [address] [place] [address]. [facility], [address] [place] [address] tel:[phone] [facility] care (chief complaint) No Information Franck Kirk Ylbe. [facility], [address] [facility], [address] [place] [address] tel:[phone] [facility] No Information Blayne Patrick. [address] [place] [address], [address] [place] [address]. [facility], [address] [place] [address] tel:[phone] [facility] No Information Blayne Patrick. [address] [place] [address], [address] [place] [address]. [facility], [address] [place] [address] tel:[phone] [facility] O[facility] PN visit (chief complaint) SUPERVIS OTH NORMAL PREG Laureano Roland. [address] [place] [address], [id number] [address] [place] [address]. tel:[phone] [facility], [address] [place] [address] tel:[phone] [facility] SUPERVIS NORMAL 1ST PREG Nursing Nursing. [address] [facility], [id number] [address] [place] [address], [address], [place]. tel:[phone] [facility], [address] [place], [place], [facility], tel:[phone] [facility] OB psychosocial intake (chief complaint) OBSERV-MENTAL COND NEC Susan Ordaz. [address], [id number] [address] [place] [address], [address], [place]. Family History Family Member Type Diagnosis Age At Onset Mother Problem (finding) asthma Mother Problem (finding) Alive and well Father Problem (finding) Alive and well Payers Payer name Insurance type Covered republican ID Authoriza tifrancesco(s) Medicaid [facility] [id number] Social History Type Description Quantity Date Captured Comments Alcohol Use Details No Caffeine Use Details No Tobacco Use Status No Information Smoking Status No Information Sex Female Vital Signs Date / Time: Height Weight BMI Pulse Rate Blood Pressure Temperature Respiratory Rate Body Surface Area Head Circumference Head Circ. Percentile Wt./Oumar. Percentile BMI percentile Pulse Ox Inhaled Ox 2:42 PM 80.286 kg (177.00 lbs) 84 /min 137/81 mm[Hg] Chief Complaint And Reason For Visit From encounter dated '06/06/2016 13:50'. f/u to 06/03 ER Visit (chief complaint). Description: Pt seen in ER 24 hours for N/V/pylonephritis 6wks TANI 01/25/2017 Today c/o Nausea/vomiting - only able to keep hernesto soup and strawberries down. Complaint of pain in head and low back area w pain radiating to left leg much better, still taking medication : Acetaminophen 325 mg tablet two tablets oral every four hours p.r.n. pain.Amoxicillin clavulanate 500 mg/125 mg tablet 0.5 tablet oral four timesdaily. Plan Of Treatment Date Type Action Status Future Order: Lab Order Group B Beta Strep Screen ([id number]), Ordered on: Ordered Future Order: Lab Order Ct/Ng, C lient Prequot, RICARDO ([id number]), Ordered on: Ordered Future Order: Lab Order RPR ([id number]), O rdered on: Ordered Future Order: Lab Order HIV Ab ( [id number]), Ordered on: Ordered Future Order: Lab Order CBC ([id number]), O rdered on: Ordered Future Order: Lab Order Ct, Ng, Trich vag by RICARDO ([id number]), Ordered on: Ordered Future Order: Lab Order GestWayne ramon 1-hr Screen ([id number]), Ordered on: Ordered Future Order: Lab Order CBC ([id number]), O rdered on: Ordered Future Order: Lab Order Chlamydi a/GC, DNA Probe w/Rflx ([id number]), Sent on: Sent History Of Present Illness Encounter Date Complaint History Of Prese nt Illness f/u to 06/03 ER Visit Pt seen in ER 24 hours for N/V/pylonephritis 6 wks TANI 01/25/2017 Today c/o Nausea/vomiting - only able to keep hernesto soup and strawberries down. Complaint of pain in head and low back area w pain radiating to left leg much better, still taking medication : Acetaminophen 325 mg tablet two tablets oral every four hours p.r.n. pain.Amoxicillin clavulanate 500 mg/125 mg tablet 0.5 tablet oral four timesdaily. Instructions Date Instruction Additional Infor mation trial vit b6 100mg & unisomEat & drink whatever she tolerates at this point in pregnancyOB intake appt so he can start pn care Related to Nausea and vomiting in prior to 22 weeks gestation Assessments Type Assessment Date assessment Nausea and vomiting in prior to 22 weeks gestation assessment Less than 8 weeks gestation of p regnancy Mental Status Date Cognitive Assessment Orientation - [place] ed to time, place, person, situation.
--- NOTE | 2025-08-20 14:50 | A.OFFVIS_ITS ---
Intake Visit Reasons: OV-Left elbow K[place]LEY 01/23/23 NE Intake Note: Gavi is a 27 year old right hand dominant female who presents today for a post op appointment for her left elbow KINGSLEY, 01/23/23 NE. At her last visit she will continue to work with physical therapy for ROM and strengthening. Patient reports she is still having a lot of pain in her elbow. She notices some swelling in her elbow and a burning sensation when she has pain. Certification And Selection Specialist Services: Certification And Selection Specialist Present ([id number]) Allergies No Known Allergies Allergy (Verified 08/20/25 15:05) HPI HPI OV-Left elbow KINGSLEY 01/23/23 NE: Details: Ms. cSott is a 29-year-old female who presents to the office today for evaluation of left upper extremity pain as well as numbness and tingling. She reports that the pain stems from her neck and goes down the entire left upper extremity. She is pending an EMG study. Of note, the patient did have removal of hardware in the left elbow performed on 01/23/[address] Enriquez. [facility] Medical History Asthma delivery delivered Surgical History Hx of elbow surgery Social History Alcohol intake: never Patient Tobacco Use Status: Never used Tobacco Tobacco use type: Cigarette Cigarettes Per Day: 3 Years Smoked: 2 years Substance Use Type: Marijuana Current occupational status: unemployed Current occupation: right hand dominant Review of Systems Const All systems reviewed & are unremarkable except as noted in HPI and below Physical Exam Const General: cooperative, healthy appearing and no acute distress Resp Effort & Inspection: normal respiratory effort and able to speak in complete sentences Extrem Other: Left elbow: No ecchymosis, erythema, or edema. No tenderness to palpation over the olecranon. No tenderness to the medial or lateral epicondyle. Full flexion- extension, pronation supination. NVI. Psych Appearance: grossly normal Mental Status: mental status grossly normal Attitude: cooperative Assessment & Plan Assessment & Plan (1) Numbness and tingling of left hand: Code(s): R20.0 - Anesthesia of skin; R20.2 - Paresthesia of skin Category: Medical Plan Ms. Scott is a 29-year-old female who presents to the office today for evaluation of left upper extremity pain as well as numbness and tingling. She reports that the pain stems from her neck and goes down the entire left upper extremity. She is pending an EMG study. Of note, the patient did have removal of hardware in the left elbow performed on 01/23/[address] Enriquez. While in the office today, we discussed the importance of completing the EMG study. Additionally, she is not having pain at the removal of hardware incision site or the elbow specifically. She is having numbness tingling and pain in the entire left upper extremity likely with neurological involvement. After the EMG is obtained she can follow up with Dr. Manriquez for further evaluation and treatment of possible C-spine involvement. X-rays of the left elbow which were obtained while in the office today and were reviewed by me, Jolanta Munoz PA-C, revealed no acute bony abnormalities. Orders: Orders XR elbow LT min 3V Today M25.529 - Pain in unspecified elbow Coding Level of Care Code Est Pt Level 3 (33085) Diagnoses Numbness and tingling of left hand R20.0; R20.2
--- OUTSIDE RECORDS SUMMARY | 2025-08-20 17:13 | XMS_ITS | Encounter Summary ---
Author Organization [employer] Address [address] [facility] 7t [place] [address] Care Team Providers Care Delivery Lead Name Role Phone Casie Aldana MD Primary Care Provider + Reason for Referral * Imaging (Routine) - Pending Review Specialty Diagnoses / Procedures Referred By Contac t Referred To Contact Radiology Diagnoses Seroma of breast Procedures BI US Breast Limited Left Casie Aldana MD [address] [place] [phone] Phone: tel: fax: Referral ID Status Reason Start Date Expiration Date V isits Requested Visits Authorized [id number] Pending Review 08/20/2025 08/20/2026 1 1 Encounter Details Date Type Department Care Team (Late st Contact Info) Description 08/20/2025 Telephone [employer] [facility] [address] [place] [address] Casie Aldana MD [address] [place] [address] Social History Tobacco Use Types Packs/Day Years Used Date Smoking Tobacco: Every Day Cigarettes Passive Smoke Exposure: Current Smokeless Tobacco: Never Alcohol Use Standard Drinks/Week Comments Never 0 (1 standard drink = 0.6 oz pur e alcohol) Comments Unknown Sex and Gender Information Value Date Recorded Sex Assigned at Female 08/13/2024 2:54 PM EDT Legal Sex Female 1:47 PM EDT Gender Identity Female 08/13/2024 2:54 PM EDT Sexual Orientation Straight 08/13/2024 2: 54 PM EDT documented as of this encounter Miscellaneous Notes * Addendum Note - Casie Aldana MD - 08/20/2025 4:55 PM EDTAddended by: CASIE ALDANA on: 08/20/2025 04:55 PM Modules accepted: Orders * Telephone Encounter - Angelique Hollingsworth - 08/20/2025 10:06 AM EDT Joellen at [facility] is requesting Us Breast order to be update to Us Breast Limited Left. Please advise! documented in this encounter Plan of Treatment Scheduled Orders Name Type Priority Associated Diagnoses Orde r Schedule BI US Breast Limited Left Imaging Routine Seroma of breast Expected: 08/20/2025 (Approximate), Expires: 08/20/2026 documented as of this encounter Visit Diagnoses Diagnosis Seroma of breast- Primary documented in this encounter Care Teams Delivery Lead Relationship Specialty Start Date End Date Casei Aldana MD [address] [place] [phone] PCP - General Internal Medicine 08/17/25 documented as of this encounter
--- OUTSIDE RECORDS SUMMARY | 2025-08-20 17:13 | XMS_ITS | Encounter Summary ---
Author Organization [email or web address] Address [address] [facility] 7t [place] [address] Care Team Providers Care Web Press Roll Tender Name Role Phone Casie Shaffer MD Primary Care Provider + Reason for Visit * Reason Onset Date Comments scheduling 08/17/2025 Encounter Details Date Type Department Care Team (Late st Contact Info) Description 08/17/2025 Telephone [facility] [address] [place] [address] Casie Shaffer MD [address] [place] [address] scheduling Social History Tobacco Use Types Packs/Day Years [...] encounter Miscellaneous Notes * Telephone Encounter - Kevin Flores MA - 08/17/2025 2:40 PM EDT T/C to pt to schedule a ov extended. No answer LVM to call clinic. If pt call back please schedule next available appointment with PCP 30 min appointment. documented in this encounter Plan of Treatment Not on file documented as of this encounter Visit Diagnoses Not on filedocumented in this encounter Care Teams Web Press Roll Tender Relationship Specialty Start Date End Date Casie Shaffer MD [address] [place] [phone] PCP - General Internal Medicine 08/17/25 documented as of this encounter
--- OUTSIDE RECORDS SUMMARY | 2025-08-20 17:13 | XMS_ITS | Encounter Summary ---
Author Organization [employer] Address [address] [facility] 7t [place] [address] Care Team Providers Care Ranger Aide Name Role Phone Casie Shaffer MD Primary Care Provider + Encounter Details Date Type Department Care Team (Late st Contact Info) Description 08/17/2025 Telephone [facility] [address] [place] [address] Ivan Trotter MD [address] [place] [address] Social History Tobacco Use Types Packs/Day Years [...] * Telephone Encounter - Adrian Frias - 08/17/2025 10:22 AM EDT Pt was seen in the walk in on 08-14-[address] Shaffer please schedule a follow up appointmentwithin a month. ----- Message from Casie Shaffer MD sent at 08/14/2025 4:45 PM EDT ----- Patient needs an ELEVATOR INSTALLER appointment within 1 month documented in this encounter Plan of Treatment Not on file documented as of this encounter Visit Diagnoses Not on filedocumented in this encounter Care Teams Ranger Aide Relationship Specialty Start Date End Date Casie Shaffer MD [address] [place] [phone] PCP - General Internal Medicine 08/17/25 documented as of this encounter
--- OUTSIDE RECORDS SUMMARY | 2025-08-20 17:13 | XMS_ITS | Encounter Summary ---
Author Organization [employer] Address [address] [facility] 7t [place] [address] Care Team Providers Care Citrix Consultant Name Role Phone Casie Shaffer MD Primary Care Provider + Reason for Visit * Reason Onset Date Comments telephone call 08/20/2025 Encounter Details Date Type Department Care Team (Late st Contact Info) Description 08/20/2025 Telephone [facility] [address] [place], [place] [phone] Casie Shaffer MD [address] [place] [address] telephone call Social History Tobacco Use Types Packs/Day Years [...] encounter Miscellaneous Notes * Telephone Encounter - Ita Maya - 08/20/2025 12:54 PM EDT Pt walked in stating she had a nipple piercing on her left side that had gotten infected and she had to remove it and then her belly piercing got infected and she was having symptoms like fever, chills, and feeling tired. She is worried that the infection from her nipple spread throughout her body and wants to get tested to see if she has a viral infection. Best contact number is [phone] malay speaking documented in this encounter Plan of Treatment Not on file documented as of this encounter Visit Diagnoses Not on filedocumented in this encounter Care Teams Citrix Consultant Relationship Specialty Start Date End Date Casie Shaffer MD [address] [place] [phone] PCP - General Internal Medicine 08/17/25 documented as of this encounter
--- OUTSIDE RECORDS SUMMARY | 2025-08-20 17:13 | XMS_ITS | Clinical Summary ---
Author Organization [employer] Address [address] [facility] 7t [place] [address] Care Team Providers Care Electronic Heat Seal Operator Name Role Phone Casie Shaffer MD Primary Care Provider + Allergies No known active allergies Medications albuterol 108 (90 Base) MCG/ACT inhalerIndicatio ns:Cough, unspecified type Inhale 2 puffs every 6 (six) hours if needed for wheezing. 18 g 1 4 Active cefadroxil (Duricef) 500 MG capsule Take 1 capsule (500 mg) by mouth 2 times daily for 7 days. 14 capsule 5 08/21/20 25 Active clotrimazole-bet amethasone (Lotrisone) cream Apply topically 2 times daily for 28 days. 30 g 5 09/11/20 25 Active Active Problems Problem Noted Date Diagnosed Date Seroma of breast 08/14/2025 Assessment & Plan (08/14/2025 4:44 PM EDT): Will Rx with Duricef due to superimposed cellulitis. Avoid re-insertion of piercing Order breast ultrasound due to induration and recurrent symptoms Follow-up with PCP Tinea corporis 08/14/2025 Assessment & Plan (08/14/2025 4:45 PM EDT): Lesions mostly on the chest and right arm Rx clotrimazole, if no improvement, will need to follow-up with PCP Encounters Date Type Department Care Team Description 08/20/2025 Telephone [facility] [address] [place] [address] Casie Shaffer MD telephone call 08/20/2025 Telephone [facility] [employer] [facility] [address] [place] [address] Casie Shaffer MD 08/17/2025 Telephone [facility] [address] [place], [place] [phone] Casie Shaffer MD scheduling 08/17/2025 Telephone [facility] [address] [place], [place] [phone] Ivan Trotter MD 08/14/2025 3:20 PM EDT Office Visit [facility] [address] [place] [address] Casie Shaffer MD Seroma of breast (Primary Dx); Tinea corporis; Cellulitis, unspecified cellulitis site 08/14/2025 Travel from Last 3 Months Social History Tobacco [...] Sign Reading Time Taken Comments Blood Pressure 130/76 08/14/2025 3:03 PM EDT Pulse 82 08/14/2025 3:03 PM EDT Temperature 37.2 C (98.9 F) 08/14/2025 3:03 PM EDT Respiratory Rate 20 08/14/2025 3:03 PM EDT Oxygen Saturation 98% 08/14/2025 3:03 PM EDT Inhaled Oxygen Concentration - - Weight 53.2 kg (117 lb 3.2 oz) 08/14/2025 3:03 P M EDT Height 162.6 cm (5' 4 ) 08/14/2025 3:03 PM EDT Body Mass Index 20.12 08/14/2025 3:03 PM EDT Plan of Treatment Health Maintenance Due Date Last Done Comments Depression Screening 1995 HIV Screening 1995 SDOH Screening 1995 Disability Screening 1995 Alcohol/Substance Use Screening 2007 Family Planning (PISQ) 2010 HPV Vaccines (1 - 3-dose series) 2010 Hepatitis C Screening 2013 Hepatitis B Vaccines (1 of 3 - 19+ 3-dose series) 2014 Pneumococcal Vaccine: Pediatrics (0 to 5 Years) and At-Risk Patients (6 to 49) Years (1 of 2 - PCV) 2014 Pap Smear 2016 COVID-19 Vaccine (1 - 2023- season) 2025 Influenza Vaccine (#1) 2025 08/12/2015 Tobacco Screening 08/13/2025 08/13/2024 DTaP/Tdap/Td Vaccines (5 - Td or Tdap) 04/08/2028 04/08/2018, 12/12/2016, 09/15/2015, Additional history exists Zoster Vaccines (1 of 2) 2045 RSV Patients and Patients Aged 60 years or older (1 - [...] patient's age to complete this topic Insurance [facility] Care Teams Electronic Heat Seal Operator Relationship Specialty Start Date End Date Casie Shaffer MD [address] [place] [phone] PCP - General Internal Medicine 08/17/25
== END 2025-08-20 15:32 | disposition home or self-care (01) ==
LOC: HO.HOS 14:09
PROVIDERS: PCP Internal Medicine; Visit Provider Physician Assistant
DX: R20.0 Anesthesia of skin (principal); R20.2 Paresthesia of skin
CPT/HCPCS: 99213

== ENCOUNTER → 2025-08-20 14:10 | Outpatient (BNV) | payer OTHER, SELFPAY | PROVIDERS: Visit Provider Radiology Diagnostic Radiology | DX: M25.522 Pain in left elbow (principal) | CPT/HCPCS: 73080 ==